=== PATIENT | male | born 1980 | race Caucasian/White ===

== ENCOUNTER 2017-09-06 03:11 | Emergency (ER) | payer OTHER ==
[~2017-09-06] VITALS: Ht 188 cm; Wt 143.0 kg
[2017-09-06 03:22] VITALS: BP 192/75; PULSE 88; RESP 18; TEMP 99.6; O2SAT 99
[2017-09-06] MEDS ORDERED: MONT10TA2 PO (04:24)
[2017-09-06] MEDS ORDERED: LORA-567 PO (04:24)
[2017-09-06] MEDS ORDERED: MINO100 PO (04:24)
[2017-09-06] MEDS ORDERED: RANI1TAB5 PO (04:24)
[2017-09-06] MEDS ORDERED: KETO2CRE TOPICAL (04:24)
[2017-09-06] MEDS ORDERED: LOSA50TA PO (04:24)
[2017-09-06] MEDS ORDERED: PANT40TA3 PO (04:24)
[2017-09-06] MEDS ORDERED: NYST15T TOPICAL (04:24)
--- NOTE | 2017-09-06 05:50 | PD ---
HPI Chief Complaint: Skin Problem Time Seen by Provider: 05:41 Travel History International Travel<30 days: No Contact w/Intl Traveler<30days: No Traveled to known affect area: No History of Present Illness HPI The patient is a 36-year-old male with a history of psoriasis. In the last 24 hours he has developed a fever. The patient has noticed a sudden onset of redness, particularly on the left upper arm consistent with cellulitis. He is being treated for a fungal infection with ketoconizole. The fevers been a low- grade but he does have associated pain with the skin rash. He is not on steroids. PFSH Past Medical History Diminished Hearing: No GERD: Yes Hypertension: Yes Respiratory: Yes (SEASONAL ALLERGIES) Influenza Vaccination: No Social History Alcohol Use: No Tobacco Use: No Substance Use: No Allergies-Medications (Allergen,Severity, Reaction): Coded Allergies: No Known Allergies (Unverified , 09/06/17) Reported Meds & Prescriptions Reported Meds & Active Scripts Active Cleocin (Clindamycin HCl) 300 Mg Cap 300 Mg PO Q6H 10 Days Reported Ranitidine 75 (Ranitidine HCl) 75 Mg Tab 75 Mg PO DAILY Take 30 to 60 minutes before eating food or drinking beverages that cause heartburn. Singulair (Montelukast Sodium) 10 Mg Tab 10 Mg PO HS Loratadine Odt (Loratadine) 10 Mg Tab 10 Mg PO DAILY Pantoprazole (Pantoprazole Sodium) 40 Mg Tab 40 Mg PO DAILY Losartan (Losartan Potassium) 50 Mg Tab 50 Mg PO BID Minocycline (Minocycline HCl) 100 Mg Cap 100 Mg PO BID Nystatin Topical (Nystatin) 100,000 unit/gm Cream 1 Applic TOPICAL BID Ketoconazole Topical 2% Cream 1 Applic TOPICAL BID Review of Systems Except as stated in HPI: all other systems reviewed are Neg Physical Exam Narrative GENERAL: The patient is alert, oriented 3 and slight apparent distress with his painful skin rash. His vital signs show temperature 99.6 and blood pressure 192/75 but otherwise normal. SKIN: Focused skin assessment warm/dry. There is an erythematous, squamous rash particularly prominent on the axillae, groin and waist. The left upper arm shows an area of erythema she apparently has progressed rapidly and is consistent with cellulitis. This area is about 8 cm X 10 cm. HEAD: Atraumatic. Normocephalic. EYES: Pupils equal and round. No scleral icterus. No injection or drainage. ENT: No nasal bleeding or discharge. Mucous membranes pink and moist. NECK: Trachea midline. No JVD. CARDIOVASCULAR: Regular rate and rhythm. No murmur appreciated. RESPIRATORY: No accessory muscle use. Clear to auscultation. Breath sounds equal bilaterally. GASTROINTESTINAL: Abdomen soft, non-tender, nondistended. Hepatic and splenic margins not palpable. MUSCULOSKELETAL: No obvious deformities. No clubbing. No cyanosis. No edema. NEUROLOGICAL: Awake and alert. No obvious cranial nerve deficits. Motor grossly within normal limits. Normal speech. PSYCHIATRIC: Appropriate mood and affect; insight and judgment normal. Data Data Last Documented VS Vital Signs Date Time Temp Pulse Resp B/P (MAP) Pulse Ox O2 Delivery O2 Flow Rate FiO2 09/06/17 04:15 20 09/06/17 03:22 99.6 88 192/75 (114) 99 Orders Orders Complete Blood Count With Diff (09/06/17 05:41) Basic Metabolic Panel (Bmp) (09/06/17 05:41) Wound Culture And Gram Stain (09/06/17 05:41) Acetaminophen (Tylenol) (09/06/17 06:15) Clindamycin 900 Mg/Dex Premix (Cleocin 9 (09/06/17 06:30) Labs Laboratory Tests Test 09/06/17 05:50 White Blood Count 13.7 TH/MM3 Red Blood Count 5.08 MIL/MM3 Hemoglobin 12.9 GM/DL Hematocrit 39.8 % Mean Corpuscular Volume 78.3 FL Mean Corpuscular Hemoglobin 25.3 PG Mean Corpuscular Hemoglobin Concent 32.3 % Red Cell Distribution Width 14.1 % Platelet Count 269 TH/MM3 Mean Platelet Volume 8.0 FL Neutrophils (%) (Auto) 87.0 % Lymphocytes (%) (Auto) 8.1 % Monocytes (%) (Auto) 3.6 % Eosinophils (%) (Auto) 0.9 % Basophils (%) (Auto) 0.4 % Neutrophils # (Auto) 11.9 TH/MM3 Lymphocytes # (Auto) 1.1 TH/MM3 Monocytes # (Auto) 0.5 TH/MM3 Eosinophils # (Auto) 0.1 TH/MM3 Basophils # (Auto) 0.1 TH/MM3 CBC Comment DIFF FINAL Differential Comment Blood Urea Nitrogen 17 MG/DL Creatinine 1.30 MG/DL Random Glucose 105 MG/DL Calcium Level 8.9 MG/DL Sodium Level 140 MEQ/L Potassium Level 4.1 MEQ/L Chloride Level 105 MEQ/L Carbon Dioxide Level 26.5 MEQ/L Anion Gap 9 MEQ/L Estimat Glomerular Filtration Rate 62 ML/MIN MDM Medical Decision Making Medical Screen Exam Complete: Yes Emergency Medical Condition: Yes Medical Record Reviewed: Yes Interpretation(s) The CBC shows a white count of 13,700. The patient does not look septic. Differential Diagnosis Cellulitis, psoriasis, fungal infection Narrative Course The patient does have psoriasis which apparently has been infected by fungi but , in the last 24 hours by bacteria. The rash on the left upper arm has grown particularly fast. This rash is not a squamous rash and does not appear as psoriasis and is far too rapid for fungi. Impression: Cellulitis, psoriasis Plan: The patient be given clindamycin and Septra DS. 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 You will get a work release to not work until cleared by your plant operator/shift supervisor. If worse, you may need to return to emergency department. Med/Other Pt SpecificInfo: Prescription(s) given Scripts Clindamycin (Cleocin) 300 Mg Cap 300 MG PO Q6H for Infection for 10 Days, #40 CAP 0 Refills Prov: Andry Wilson MD 09/06/17 Disposition: 01 DISCHARGE HOME Condition: Stable Andry Wilson MD Sep 06, 2017 05:50
[2017-09-06 06:05] LABS: AUTOMATED NEUTROPHIL # 11.9 TH/MM3 (1.8-7.7); BASOPHIL # 0.1 TH/MM3 (0-0.2); BASOPHIL % 0.4 % (0.0-2.0); EOSINOPHIL # 0.1 TH/MM3 (0-0.4); EOSINOPHIL % 0.9 % (0.0-4.0); HEMATOCRIT 39.8 % (39.0-51.0); HEMOGLOBIN 12.9 GM/DL (13.0-17.0); LYMPH % 8.1 % (9.0-44.0); LYMPHOCYTE # 1.1 TH/MM3 (1.0-4.8); MEAN CELL VOLUME 78.3 FL (80.0-100.0); MEAN CORPUSCULAR HEMOGLOBIN 25.3 PG (27.0-34.0); MEAN CORPUSCULAR HGB CONC 32.3 % (32.0-36.0); MONO % 3.6 % (0.0-8.0); MONOCYTE # 0.5 TH/MM3 (0-0.9); PLATELET COUNT 269 TH/MM3 (150-450); RED BLOOD COUNT 5.08 MIL/MM3 (4.50-5.90); RED CELL DISTRIBUTION WIDTH 14.1 % (11.6-17.2); WHITE BLOOD COUNT 13.7 TH/MM3 (4.0-11.0)
[2017-09-06 06:13] LABS: CALCIUM 8.9 MG/DL (8.5-10.1)
[2017-09-06 06:14] LABS: BICARBONATE 26.5 MEQ/L (21.0-32.0)
[2017-09-06] MEDS ORDERED: ACETAMINOPHEN 325 MG TAB PO ONE (06:15)
[2017-09-06 06:17] LABS: CREATININE 1.3 MG/DL (0.60-1.30)
[2017-09-06] MEDS ORDERED: CLEO300C2 PO (06:18)
[2017-09-06] MEDS ORDERED: CLINDAMYCIN 900 MG/DEX PREMIX 50 ML IV ONE (06:30)
[2017-09-06 06:45] VITALS: BP 152/86; PULSE 98; RESP 20; TEMP 101.7; O2SAT 98
[2017-09-07] MEDS ORDERED: traMADol HCL 50 MG TAB PO PRN (02:45)
== END 2017-09-06 07:57 | disposition home or self-care (01) ==
LOC: PHED 03:11
DX: L03.114 Cellulitis of left upper limb (principal); B95.1 Streptococcus, group B, as the cause of diseases classified elsewhere; I10 Essential (primary) hypertension
CPT/HCPCS: 80048; 85025; 86403; 87070; 96365

== ENCOUNTER 2017-09-06 15:41 | Inpatient (IN) | payer OTHER ==
[~2017-09-06] VITALS: Ht 188 cm; Wt 141.8 kg
[~2017-09-06 15:41] MED LIST: CLEO300C2 PO; KETO2CRE TOPICAL; LORA-567 PO; LOSA50TA PO; MINO100 PO; MONT10TA2 PO; NYST15T TOPICAL; PANT40TA3 PO; RANI1TAB5 PO
[2017-09-06 15:55] VITALS: BP 155/80; PULSE 120; RESP 16; TEMP 99.4; O2SAT 99
[2017-09-06] MEDS ORDERED: ACETAMINOPHEN 325 MG TAB PO ONE (16:45)
[2017-09-06] MEDS ORDERED: SODIUM CHLOR 0.9% 1000 ML INJ 1,000 ML IV ONE (17:00)
[2017-09-06 17:06] LABS: AUTOMATED NEUTROPHIL # 15.2 TH/MM3 (1.8-7.7); BASOPHIL % 0.2 % (0.0-2.0); EOSINOPHIL # 0.1 TH/MM3 (0-0.4); EOSINOPHIL % 0.5 % (0.0-4.0); HEMOGLOBIN 12.8 GM/DL (13.0-17.0); LYMPH % 5.9 % (9.0-44.0); MEAN CELL VOLUME 77.6 FL (80.0-100.0); MEAN CORPUSCULAR HEMOGLOBIN 25.4 PG (27.0-34.0); MEAN CORPUSCULAR HGB CONC 32.7 % (32.0-36.0); MEAN PLATELET VOLUME 8.1 FL (7.0-11.0); MONOCYTE # 0.7 TH/MM3 (0-0.9); NEUT % 89.4 % (16.0-70.0); PLATELET COUNT 306 TH/MM3 (150-450); RED BLOOD COUNT 5.03 MIL/MM3 (4.50-5.90); RED CELL DISTRIBUTION WIDTH 14.1 % (11.6-17.2)
[2017-09-06 17:14] LABS: CHLORIDE 103 MEQ/L (98-107); SODIUM (NA) 137 MEQ/L (136-145)
[2017-09-06 17:18] LABS: ALBUMIN 3.1 GM/DL (3.4-5.0); BICARBONATE 26.5 MEQ/L (21.0-32.0); CALCIUM 8.4 MG/DL (8.5-10.1); INTERNATIONAL NORMALIZED RATIO 1.1 RATIO
[2017-09-06 17:19] LABS: BLOOD UREA NITROGEN 14 MG/DL (7-18); GLUCOSE,RANDOM 103 MG/DL (74-106)
[2017-09-06 17:21] LABS: ALT (GPT) 18 U/L (12-78)
[2017-09-06 17:21] LABS: BILIRUBIN, URINE NEG (NEG); BLOOD, URINE TRACE (NEG); GLUCOSE,URINE NEG (NEG); KETONE, URINE NEG (NEG); NITRITE,URINE NEG (NEG); PH, URINE 5.5 (5.0-8.5); URINE LEUKOCYTE ESTERASE TRACE (NEG)
[2017-09-06 17:22] LABS: AST (GOT) 13 U/L (15-37); GLOMERULAR FILTRATION RATE 62 ML/MIN (>89)
[2017-09-06 17:23] LABS: TOTAL BILIRUBIN ADULT 0.5 MG/DL (0.2-1.0); TOTAL PROTEIN 7.8 GM/DL (6.4-8.2)
--- NOTE | 2017-09-06 17:23 | RADRPT ---
EXAM DATE/TIME: 09/06/2017 16:53 [facility] COMPARISON: No previous studies available for comparison. INDICATIONS : Fever and cough. MEDICAL HISTORY : None. SURGICAL HISTORY : None. ENCOUNTER: Initial ACUITY: 1 day PAIN SCORE: 2/10 LOCATION: Bilateral upper chest FINDINGS: Minimal linear opacity in the left lung base. Cardiomediastinal contours are within normal limits. Eh ny thorax is intact. CONCLUSION: 1. Minimal linear opacity at the left lung base, presumably atelectasis. Nathan Cedeño MD on September 06, 2017 at 17:21 Board Certified Radiologist. This report was verified electronically.
[2017-09-06 17:24] LABS: ALKALINE PHOSPHATASE 96 U/L (45-117)
[2017-09-06 17:37] LABS: RBC, URINE 0-3 /hpf (0-3); SQUAMOUS EPITHELIAL CELL URINE 0-5 /hpf (0-5); URINE COLOR YELLOW (YELLW/STRAW); WBC, URINE 0-2 /hpf (0-5)
[2017-09-06] MEDS ORDERED: VANCOMYCIN INJ 1,750 MG in SODIUM CHLORID 0.9% 500 ML INJ 500 ML IV ONE (17:45)
--- NOTE | 2017-09-06 18:01 | PD ---
HPI Chief Complaint: Skin Problem Time Seen by Provider: 16:33 Travel History International Travel<30 days: No Contact w/Intl Traveler<30days: No Traveled to known affect area: No History of Present Illness HPI 36-year-old male with a history of psoriasis presents to the emergency Department second time today with concerns of an uncontrolled rash in his chest , axilla, waistline, and groin. Patient states that he was here this morning and was prescribed antibiotics but has not started this medication yet. Patient states that his fever has spiked to 102 but has not taken Tylenol or Motrin because he wanted to demonstrate the extent of his fever. He denies nausea, vomiting or diarrhea. Denies shortness of breath or chest pain. Denies abdominal pain. States he has a history of psoriasis and hypertension but otherwise is healthy. He is not currently using steroids and has not for months. They're concerned because the area of redness has spread since this morning's discharge. PFSH Past Medical History Cardiovascular Problems: Yes (htn on meds) Diminished Hearing: No GERD: Yes Hypertension: Yes Respiratory: Yes (SEASONAL ALLERGIES) Past Surgical History Surgical History: No Previous Surgery Social History Alcohol Use: No Tobacco Use: No Substance Use: No Allergies-Medications (Allergen,Severity, Reaction): Coded Allergies: codeine (Verified Allergy, Intermediate, Rash, 09/07/17) Breaks out in rash Reported Meds & Prescriptions Reported Meds & Active Scripts Active Cleocin (Clindamycin HCl) 300 Mg Cap 300 Mg PO Q6H 10 Days Reported Ranitidine 75 (Ranitidine HCl) 75 Mg Tab 75 Mg PO DAILY Take 30 to 60 minutes before eating food or drinking beverages that cause heartburn. Singulair (Montelukast Sodium) 10 Mg Tab 10 Mg PO HS Loratadine Odt (Loratadine) 10 Mg Tab 10 Mg PO DAILY Pantoprazole (Pantoprazole Sodium) 40 Mg Tab 40 Mg PO DAILY Losartan (Losartan Potassium) 50 Mg Tab 50 Mg PO BID Minocycline (Minocycline HCl) 100 Mg Cap 100 Mg PO BID Nystatin Topical (Nystatin) 100,000 unit/gm Cream 1 Applic TOPICAL BID Ketoconazole Topical 2% Cream 1 Applic TOPICAL BID Review of Systems Except as stated in HPI: all other systems reviewed are Neg Physical Exam Narrative GENERAL: Well-developed well-nourished distress SKIN: Focused skin assessment warm/dry. Bilateral axilla, pannus, groin, chest- erythematous plaques with satellite lesions, mild scaling, Nickolskys sign negative HEAD: Atraumatic. Normocephalic. EYES: Pupils equal and round. No scleral icterus. No injection or drainage. ENT: No nasal bleeding or discharge. Mucous membranes pink and moist. NECK: Trachea midline. No JVD. CARDIOVASCULAR: Regular rate and rhythm. No murmur appreciated. RESPIRATORY: No accessory muscle use. Clear to auscultation. Breath sounds equal bilaterally. GASTROINTESTINAL: Abdomen soft, non-tender, nondistended. Hepatic and splenic margins not palpable. MUSCULOSKELETAL: No obvious deformities. No clubbing. No cyanosis. No edema. NEUROLOGICAL: Awake and alert. No obvious cranial nerve deficits. Motor grossly within normal limits. Normal speech. PSYCHIATRIC: Appropriate mood and affect; insight and judgment normal. Data Data Last Documented VS Vital Signs Date Time Temp Pulse Resp B/P (MAP) Pulse Ox O2 Delivery O2 Flow Rate FiO2 09/06/17 15:55 99.4 120 16 155/80 (105) 99 Orders Orders Complete Blood Count With Diff (09/06/17 16:41) Comprehensive Metabolic Panel (09/06/17 16:41) Prothrombin Time / Inr (Pt) (09/06/17 16:41) Act Partial Throm Time (Ptt) (09/06/17 16:41) Lactic Acid Sepsis Protocol (09/06/17 16:41) Urinalysis - C+S If Indicated (09/06/17 16:41) Blood Culture (09/06/17 16:41) Chest, Single Ap (09/06/17 16:41) Blood Glucose (09/06/17 16:41) Ecg Monitoring (09/06/17 16:41) Iv Access Insert/Monitor (09/06/17 16:41) Oximetry (09/06/17 16:41) Oxygen Administration (09/06/17 16:41) Acetaminophen (Tylenol) (09/06/17 16:45) Sodium Chlor 0.9% 1000 Ml Inj (Ns 1000 M (09/06/17 17:00) Vancomycin Inj (Vancomycin Inj) (09/06/17 17:45) C-Reactive Protein (Crp) (09/06/17 18:24) Fluconazole 200 Mg Premix Bag (Diflucan (09/06/17 18:30) Admit Order (Ed Use Only) (09/06/17 18:25) Labs Laboratory Tests Test 09/06/17 16:50 09/06/17 17:00 White Blood Count 17.0 TH/MM3 Red Blood Count 5.03 MIL/MM3 Hemoglobin 12.8 GM/DL Hematocrit 39.0 % Mean Corpuscular Volume 77.6 FL Mean Corpuscular Hemoglobin 25.4 PG Mean Corpuscular Hemoglobin Concent 32.7 % Red Cell Distribution Width 14.1 % Platelet Count 306 TH/MM3 Mean Platelet Volume 8.1 FL Neutrophils (%) (Auto) 89.4 % Lymphocytes (%) (Auto) 5.9 % Monocytes (%) (Auto) 4.0 % Eosinophils (%) (Auto) 0.5 % Basophils (%) (Auto) 0.2 % Neutrophils # (Auto) 15.2 TH/MM3 Lymphocytes # (Auto) 1.0 TH/MM3 Monocytes # (Auto) 0.7 TH/MM3 Eosinophils # (Auto) 0.1 TH/MM3 Basophils # (Auto) 0.0 TH/MM3 CBC Comment DIFF FINAL Differential Comment Prothrombin Time 11.0 SEC Prothromb Time International Ratio 1.1 RATIO Activated Partial Thromboplast Time 32.1 SEC Blood Urea Nitrogen 14 MG/DL Creatinine 1.30 MG/DL Random Glucose 103 MG/DL Total Protein 7.8 GM/DL Albumin 3.1 GM/DL Calcium Level 8.4 MG/DL Alkaline Phosphatase 96 U/L Aspartate Amino Transf (AST/SGOT) 13 U/L Alanine Aminotransferase (ALT/SGPT) 18 U/L Total Bilirubin 0.5 MG/DL Sodium Level 137 MEQ/L Potassium Level 3.8 MEQ/L Chloride Level 103 MEQ/L Carbon Dioxide Level 26.5 MEQ/L Anion Gap 8 MEQ/L Estimat Glomerular Filtration Rate 62 ML/MIN Lactic Acid Level 1.1 mmol/L C-Reactive Protein 12.30 MG/DL Urine Color YELLOW Urine Turbidity CLEAR Urine pH 5.5 Urine Specific [place] 1.021 Urine Protein NEG mg/dL Urine Glucose (UA) NEG mg/dL Urine Ketones NEG mg/dL Urine Occult Blood TRACE Urine Nitrite NEG Urine Bilirubin NEG Urine Leukocyte Esterase TRACE Urine RBC 0-3 /hpf Urine WBC 0-2 /hpf Urine Squamous Epithelial Cells 0-5 /hpf Microscopic Urinalysis Comment CATH-CULT NOT IND MDM Medical Decision Making Medical Screen Exam Complete: Yes Emergency Medical Condition: Yes Differential Diagnosis Cellulitis, bacteremia, sepsis, urosepsis list, psoriasis Narrative Course 36-year-old male with a history of psoriasis presents to the emergency Department second time today with concerns of an uncontrolled rash in his chest , axilla, waistline, and groin. Patient states that he was here this morning and was prescribed antibiotics but has not started this medication yet. Patient states that his fever has spiked to 102 but has not taken Tylenol or Motrin because he wanted to demonstrate the extent of his fever. He denies nausea, vomiting or diarrhea. Denies shortness of breath or chest pain. Denies abdominal pain. States he has a history of psoriasis and hypertension but otherwise is healthy. He is not currently using steroids and has not for months. They're concerned because the area of redness has spread since this morning's discharge. CBC & BMP Diagram 09/06/17 16:50 Total Protein 7.8, Albumin 3.1 L, Calcium Level 8.4 L, Alkaline Phosphatase 96, Aspartate Amino Transf (AST/SGOT) 13 L, Alanine Aminotransferase (ALT/SGPT) 18, Total Bilirubin 0.5 White blood cell count has increased to 17 from 13 this morning. Vital Signs Date Time Temp Pulse Resp B/P (MAP) Pulse Ox O2 Delivery O2 Flow Rate FiO2 09/06/17 15:55 99.4 120 16 155/80 (105) 99 WBCs increased since this morning. Concern for developing bacteremia versus sepsis. Patient received vancomycin and 1 L normal saline in the emergency department. Patient would be admitted for IV antibiotics. There is a concern for noncompliance with outpatient therapy. Patient will be admitted to Dr. Fink for leukocytosis, cellulitis, noncompliance. Diagnosis Primary Impression: Leukocytosis Qualified Codes: D72.829 - Elevated white blood cell count, unspecified Additional Impressions: Cellulitis Qualified Codes: L03.90 - Cellulitis, unspecified Noncompliance with medication regimen Admitting Information Admitting Physician Requests: Observation Condition: Stable Catie Ro Sep 06, 2017 18:01
[2017-09-06] MEDS ORDERED: FLUCONAZOLE 200 MG PREMIX BAG 100 ML IV ONE (18:30)
[2017-09-06 19:23] VITALS: BP 146/73; PULSE 87; RESP 18; O2SAT 97
--- NOTE | 2017-09-06 19:27 | HHI.HP ---
HPI Service [facility] Hospitalists Primary Care Physician Unknown Admission Diagnosis cellulitis Chief Complaint: Rash, fever Travel History International Travel<30 Days: No Contact w/Intl Traveler <30 Da: No Traveled to Known Affected Are: No Sepsis Criteria SIRS Criteria (2 or more): Heart rate over 90, WBC > 08073, < 4000 or > 10% bands Sepsis Criteria (SIRS+source): Infect source susp/known History of Present Illness 36-year-old male with a history of psoriasis presents to the emergency Department second time today with concerns of an uncontrolled rash in his chest , axilla, waistline, and groin. Patient states that he was here this morning and was prescribed clindamycin but has not started this medication yet. Patient states that his fever spiked to 102 and has not taken Tylenol or Motrin for this. He denies nausea, vomiting or diarrhea. Denies shortness of breath or chest pain. Denies abdominal pain. States he has a history of psoriasis and hypertension but otherwise is healthy. Rash is not pruritic. He denies any boils or blisters or fluid collection in the rash. He states that much of the rash has been present for over a year and that he was diagnosed with psoriasis approximately one year ago. However rash in his axilla in his groin area become more erythematous and painful over the last 2 days. Said he had some malaise yesterday and noted low-grade fever this morning with a temperature max of 102 and later today. He is not currently using steroids and has not been for months. They're concerned because the area of redness has spread since this morning's discharge. The only significant medical change of late is that his doxycycline was switched to minocycline approximately 2 weeks ago by a new loan specialist. He said biopsy of the rash in the past which confirmed psoriasis. Reportedly had another biopsy approximately 2 weeks ago by his loan specialist in [place] but does not know the results of that yet. Review of Systems Constitutional: COMPLAINS OF: Fatigue, Fever, Chills, DENIES: Diaphoretic episodes, Weight gain, Weight loss, Dizziness, Change in appetite, Night Sweats Endocrine: DENIES: Heat/cold intolerance, Polydipsia, Polyuria, Polyphagia Eyes: DENIES: Blurred vision, Diplopia, Eye inflammation, Eye pain, Vision loss , Photosensitivity, Double Vision Ears, nose, mouth, throat: DENIES: Tinnitus, Hearing loss, Vertigo, Nasal discharge, Oral lesions, Throat pain, Hoarseness, Ear Pain, Running Nose, Epistaxis, Sinus Pain, Toothache, Odynophagia Respiratory: DENIES: Apneas, Cough, Snoring, Wheezing, Hemoptysis, Sputum production, Shortness of breath Cardiovascular: DENIES: Chest pain, Palpitations, Syncope, Dyspnea on Exertion , PND, Lower Extremity Edema, Orthopnea, Claudication Gastrointestinal: DENIES: Abdominal pain, Black stools, Bloody stools, BRB per rectum, Constipation, Diarrhea, GERD, Nausea, Reflux, Vomiting, Difficulty Swallowing, Anorexia, See HPI Musculoskeletal: DENIES: Joint pain, Muscle aches, Stiffness, Joint Swelling, Back pain, Neck pain Integumentary: COMPLAINS OF: Abnormal pigmentation, Nail changes, Rash, DENIES : Pruritus Hematologic/lymphatic: DENIES: Bruising, Lymphadenopathy Immunologic/allergic: DENIES: Eczema, Urticaria Neurologic: DENIES: Abnormal gait, Headache, Localized weakness, Paresthesias, Seizures, Speech Problems, Tremor, Poor Balance Psychiatric: DENIES: Anxiety, Confusion, Mood changes, Depression, Hallucinations, Agitation, Suicidal Ideation, Homicidal Ideation, Delusions, History of Bipolar, History of Schizophrenia Past Family Social History Past Medical History Hypertension Obesity Psoriasis GERD Environmental allergies Past Surgical History None per patient Reported Medications Cleocin (Clindamycin HCl) 300 Mg Cap 300 Mg PO Q6H 10 Days, just written today and has not started medication Singulair (Montelukast Sodium) 10 Mg Tab 10 Mg PO HS Loratadine Odt (Loratadine) 10 Mg Tab 10 Mg PO DAILY Pantoprazole (Pantoprazole Sodium) 40 Mg Tab 40 Mg PO DAILY Losartan (Losartan Potassium) 50 Mg Tab 50 Mg PO BID Minocycline (Minocycline HCl) 100 Mg Cap 100 Mg PO BID, started approximately 2 weeks ago Nystatin Topical (Nystatin) 100,000 unit/gm Cream 1 Applic TOPICAL BID Ketoconazole Topical 2% Cream 1 Applic TOPICAL BID Clobetasol lotion to scalp twice daily as needed Allergies: Coded Allergies: No Known Allergies (Unverified , 09/06/17) Family History Denies any significant skin conditions or autoimmune disorders Social History Denies tobacco, alcohol or illicit drug use Grew up in [facility] [employer] Physical Exam Vital Signs Vital Signs Date Time Temp Pulse Resp B/P (MAP) Pulse Ox O2 Delivery O2 Flow Rate FiO2 09/06/17 15:55 99.4 120 16 155/80 (105) 99 Physical Exam GENERAL: This is a well-nourished, obese, well-developed patient, in no apparent distress. Cooperative with exam. SKIN: Confluent areas of erythema with surrounding satellite lesions and papules in bilateral groins and axilla. No bullous lesions noted. Erythematous confluence rash on upper chest. A few punctate areas of erythematous plaques on forearms and about scalp with silvery scales. Onycholysis and nail pitting noted on all nail beds of both hands (chronic and stable per patient) HEAD: Atraumatic. Normocephalic. No temporal or scalp tenderness. EYES: Pupils equal round and reactive. Extraocular motions intact. No scleral icterus. No injection or drainage. ENT: Nose without bleeding, purulent drainage or septal hematoma. Airway patent. NECK: Trachea midline. No JVD or lymphadenopathy. Supple, nontender, no meningeal signs. CARDIOVASCULAR: Regular rate and rhythm without murmurs, gallops, or rubs. RESPIRATORY: Clear to auscultation. Breath sounds equal bilaterally. No wheezes , rales, or rhonchi. GASTROINTESTINAL: Abdomen soft, non-tender, nondistended. No hepato-splenomegaly , or palpable masses. No guarding. Bowel sounds normal. MUSCULOSKELETAL: Extremities without clubbing, cyanosis, or edema. No joint tenderness, effusion, or edema noted. No calf tenderness. NEUROLOGICAL: Awake and alert. Cranial nerves II through XII intact. Motor and sensory grossly within normal limits. Five out of 5 muscle strength in all muscle groups. Normal speech. Laboratory Laboratory Tests Test 09/06/17 16:50 09/06/17 17:00 White Blood Count 17.0 Red Blood Count 5.03 Hemoglobin 12.8 Hematocrit 39.0 Mean Corpuscular Volume 77.6 Mean Corpuscular Hemoglobin 25.4 Mean Corpuscular Hemoglobin Concent 32.7 Red Cell Distribution Width 14.1 Platelet Count 306 Mean Platelet Volume 8.1 Neutrophils (%) (Auto) 89.4 Lymphocytes (%) (Auto) 5.9 Monocytes (%) (Auto) 4.0 Eosinophils (%) (Auto) 0.5 Basophils (%) (Auto) 0.2 Neutrophils # (Auto) 15.2 Lymphocytes # (Auto) 1.0 Monocytes # (Auto) 0.7 Eosinophils # (Auto) 0.1 Basophils # (Auto) 0.0 CBC Comment DIFF FINAL Differential Comment Prothrombin Time 11.0 Prothromb Time International Ratio 1.1 Activated Partial Thromboplast Time 32.1 Blood Urea Nitrogen 14 Creatinine 1.30 Random Glucose 103 Total Protein 7.8 Albumin 3.1 Calcium Level 8.4 Alkaline Phosphatase 96 Aspartate Amino Transf (AST/SGOT) 13 Alanine Aminotransferase (ALT/SGPT) 18 Total Bilirubin 0.5 Sodium Level 137 Potassium Level 3.8 Chloride Level 103 Carbon Dioxide Level 26.5 Anion Gap 8 Estimat Glomerular Filtration Rate 62 Lactic Acid Level 1.1 Urine Color YELLOW Urine Turbidity CLEAR Urine pH 5.5 Urine Specific [place] 1.021 Urine Protein NEG Urine Glucose (UA) NEG Urine Ketones NEG Urine Occult Blood TRACE Urine Nitrite NEG Urine Bilirubin NEG Urine Leukocyte Esterase TRACE Urine RBC 0-3 Urine WBC 0-2 Urine Squamous Epithelial Cells 0-5 Microscopic Urinalysis Comment CATH-CULT NOT IND Date/Time Source Procedure Growth Status 09/06/17 16:55 Blood Peripheral Aerobic Blood Culture Pending Received 09/06/17 16:55 Blood Peripheral Anaerobic Blood Culture Pending Received Result Diagram: 09/06/17 1650 09/06/17 1650 Imaging Last 72 hours Impressions Chest X-Ray 09/06/17 1641 Signed Impressions: Service Date/Time: Wednesday, September 06, 2017 16:53 - CONCLUSION: 1. Minimal linear opacity at the left lung base, presumably atelectasis. MD Marcus Morley VTE Risk Assessment Caprini VTE Risk Assessment: No/Low Risk (score <= 1) Caprini Risk Assessment Model Point Value = 1 Point Value = 2 Point Value = 3 Point Value = 5 Age 41-60 Minor surgery BMI > 25 kg/m2 Swollen legs Varicose veins or History of unexplained or recurrent spontaneous Oral contraceptives or hormone replacement Sepsis (< 1 month) Serious lung disease, including pneumonia (< 1 month) Abnormal pulmonary function Acute myocardial infarction Congestive heart failure (< 1 month) History of inflammatory bowel disease Medical patient at bed rest Age 61-74 Arthroscopic surgery Major open surgery (> 45 min) Laparoscopic surgery (> 45 min) Malignancy Confined to bed (> 72 hours) Immobilizing plaster cast Central venous access Age >= 75 History of VTE Family history of VTE Factor V Leiden Prothrombin [id number] Lupus anticoagulant Anticardiolipin antibodies Elevated serum homocysteine Heparin-induced thrombocytopenia Other congenital or acquired thrombophilia Stroke (< 1 month) Elective arthroplasty Hip, pelvis, or leg fracture Acute spinal cord injury (< 1 month) Prophylaxis Regimen Total Risk Factor Score Risk Level Prophylaxis Regimen 0-1 Low Early ambulation 2 Moderate Order ONE of the following: *Sequential Compression Device (SCD) *Heparin 5000 units SQ BID 3-4 Higher Order ONE of the following medications: *Heparin 5000 units SQ TID *Enoxaparin/Lovenox 40 mg SQ daily (WT < 150 kg, CrCl > 30 mL/min) *Enoxaparin/Lovenox 30 mg SQ daily (WT < 150 kg, CrCl > 10-29 mL/min) *Enoxaparin/Lovenox 30 mg SQ BID (WT < 150 kg, CrCl > 30 mL/min) AND/OR *Sequential Compression Device (SCD) 5 or more Highest Order ONE of the following medications: *Heparin 5000 units SQ TID (Preferred with Epidurals) *Enoxaparin/Lovenox 40 mg SQ daily (WT < 150 kg, CrCl > 30 mL/min) *Enoxaparin/Lovenox 30 mg SQ daily (WT < 150 kg, CrCl > 10-29 mL/min) *Enoxaparin/Lovenox 30 mg SQ BID (WT < 150 kg, CrCl > 30 mL/min) AND *Sequential Compression Device (SCD) Assessment and Plan Problem List: (1) Cellulitis ICD Codes: L03.90 - Cellulitis, unspecified Status: Acute Plan: Possibly source of his fever and leukocytosis. Vancomycin has been administered He definitely has some underlying psoriatic lesions as well. We'll give one dose of steroid. Given his fever, leukocytosis, tachycardia and likely skin infection, patient meets criteria for SIRS/borderline sepsis. (2) Leukocytosis ICD Codes: D72.829 - Elevated white blood cell count, unspecified Status: Acute Plan: As above. (3) Tinea corporis ICD Codes: B35.4 - Tinea corporis Status: Acute Plan: Diflucan. Ketoconazole. Barrier creams. (4) Hypertension ICD Codes: I10 - Essential (primary) hypertension Status: Chronic Plan: Continue medication. (5) GERD (gastroesophageal reflux disease) ICD Codes: K21.9 - Gastro-esophageal reflux disease without esophagitis Status: Chronic Plan: Continue medication. Code Status full Discussed Condition With Patient, his and ER provider Physician Certification 2 Midnight Certification Type: Admission for Inpatient Services Order for Inpatient Services The services are ordered in accordance with Medicare regulations or non- Medicare payer requirements, as applicable. In the case of services not specified as inpatient-only, they are appropriately provided as inpatient services in accordance with the 2-midnight benchmark. Estimated LOS (days): 2 days is the estimated time the patient will need to remain in the hospital, assuming treatment plan goals are met and no additional complications. Post-Hospital Plan: Home Problem Qualifiers (1) Cellulitis: Qualified Codes: L03.90 - Cellulitis, unspecified (2) Leukocytosis: Qualified Codes: D72.829 - Elevated white blood cell count, unspecified (3) Hypertension: Qualified Codes: I10 - Essential (primary) hypertension Jose Fink MD PhD Sep 06, 2017 19:27
[2017-09-06] MEDS ORDERED: Vancomycin Consult Pharmacy 1 EA OTHER SCH (19:30)
[2017-09-06] MEDS ORDERED: methylPREDNISolone SOD SUCC 40 MG/1 ML VIAL IV PUSH ONE (20:00)
[2017-09-06 20:15] VITALS: BP 154/80; PULSE 85; RESP 20; TEMP 99.4; O2SAT 98
[2017-09-06] MEDS ORDERED: PETROLATUM 49%/ZINC OXIDE 15% 4 OUNCE TUBE TOPICAL SCH (21:00)
[2017-09-06] MEDS: LOSARTAN 50 MG TAB PO SCH (23:57)
[2017-09-06] MEDS: NS + KCL 20 MEQ INJ 1,000 ML IV SCH (23:57)
[2017-09-06] MEDS: MONTELUKAST SODIUM 10 MG TAB PO SCH (23:57)
[2017-09-07] VITALS: BP 156/86; PULSE 105; RESP 20; TEMP 100.5; O2SAT 100
[2017-09-07] MEDS ORDERED: traMADol HCL 50 MG TAB PO PRN (03:30)
[2017-09-07] MEDS: ACETAMINOPHEN 500 MG CPLT PO PRN (03:42)
[2017-09-07 04:00] VITALS: BP 139/80; PULSE 90; RESP 20; TEMP 98.3; O2SAT 96
[2017-09-07] MEDS: NS + KCL 20 MEQ INJ 1,000 ML IV SCH (05:30)
[2017-09-07] MEDS ORDERED: VANCOMYCIN INJ 1,800 MG in SODIUM CHLORID 0.9% 500 ML INJ 500 ML IV SCH ×2 (06:00→09:00)
[2017-09-07 06:11] LABS: AUTOMATED NEUTROPHIL # 18.8 TH/MM3 (1.8-7.7); BASOPHIL % 0.1 % (0.0-2.0); HEMATOCRIT 37.5 % (39.0-51.0); HEMOGLOBIN 12.3 GM/DL (13.0-17.0); LYMPH % 3.2 % (9.0-44.0); LYMPHOCYTE # 0.6 TH/MM3 (1.0-4.8); MEAN CELL VOLUME 78.4 FL (80.0-100.0); MEAN CORPUSCULAR HEMOGLOBIN 25.8 PG (27.0-34.0); MEAN CORPUSCULAR HGB CONC 32.9 % (32.0-36.0); MEAN PLATELET VOLUME 8.3 FL (7.0-11.0); MONO % 0.6 % (0.0-8.0); MONOCYTE # 0.1 TH/MM3 (0-0.9); NEUT % 96.1 % (16.0-70.0); PLATELET COUNT 267 TH/MM3 (150-450); RED BLOOD COUNT 4.79 MIL/MM3 (4.50-5.90); RED CELL DISTRIBUTION WIDTH 14.3 % (11.6-17.2); WHITE BLOOD COUNT 19.5 TH/MM3 (4.0-11.0)
[2017-09-07 06:19] LABS: CHLORIDE 108 MEQ/L (98-107); SODIUM (NA) 140 MEQ/L (136-145)
[2017-09-07 06:23] LABS: CALCIUM 8.6 MG/DL (8.5-10.1)
[2017-09-07 06:24] LABS: ALBUMIN 2.9 GM/DL (3.4-5.0); BICARBONATE 25.4 MEQ/L (21.0-32.0); BLOOD UREA NITROGEN 13 MG/DL (7-18); GLUCOSE,RANDOM 147 MG/DL (74-106)
[2017-09-07 06:27] LABS: ALT (GPT) 17 U/L (12-78); AST (GOT) 15 U/L (15-37); GLOMERULAR FILTRATION RATE 62 ML/MIN (>89)
[2017-09-07 06:29] LABS: TOTAL BILIRUBIN ADULT 0.4 MG/DL (0.2-1.0); TOTAL PROTEIN 7.6 GM/DL (6.4-8.2)
[2017-09-07 06:30] LABS: ALKALINE PHOSPHATASE 93 U/L (45-117)
[2017-09-07] MEDS ORDERED: methylPREDNISolone SOD SUCC 40 MG/1 ML VIAL IV PUSH ONE (07:00)
--- NOTE | 2017-09-07 07:05 | HHI.PR ---
Subjective Remarks Didn't sleep well due to not being able to get comfortable in the bed He believes the steroid helped the rash initially but now rash seems to be more erythematous and somewhat painful particularly in the axillae. Low-grade fever noted Objective Vitals Vital Signs Date Time Temp Pulse Resp B/P (MAP) Pulse Ox O2 Delivery O2 Flow Rate FiO2 09/07/17 04:00 98.3 90 20 139/80 (99) 96 09/07/17 00:00 100.5 105 20 156/86 (109) 100 09/06/17 20:15 99.4 85 20 154/80 (104) 98 09/06/17 20:14 09/06/17 19:23 87 18 146/73 (97) 97 Room Air 09/06/17 15:55 99.4 120 16 155/80 (105) 99 GENERAL: Obese, lying in bed, no acute distress. SKIN: [place], erythematous plaques and patches in the axillary, groins, lower back, and upper chest. Some scaling noted with other areas of satellite lesions. No vesicles or bulla. No petechiae. No areas of splinter hemorrhage. Onycholysis and pitting of nails noted. HEAD: Normocephalic. EYES: No scleral icterus. No injection or drainage. NECK: Supple, trachea midline. No JVD or lymphadenopathy. CARDIOVASCULAR: Regular rate and rhythm. RESPIRATORY: No accessory muscle use. GASTROINTESTINAL: Abdomen soft, non-tender, nondistended. Bowel sounds present. MUSCULOSKELETAL: No cyanosis, or edema. BACK: No CVA tenderness. Result Diagram: 09/07/17 0530 09/07/17 0530 Imaging Last 72 hours Impressions Chest X-Ray 09/06/17 1641 Signed Impressions: Service Date/Time: Wednesday, September 06, 2017 16:53 - CONCLUSION: 1. Minimal linear opacity at the left lung base, presumably atelectasis. Nathan Cedeño MD Urinary Catheter: No Vascular Central Line Catheter: No A/P Problem List: (1) Cellulitis ICD Codes: L03.90 - Cellulitis, unspecified Status: Acute Plan: Possibly source of his fever and leukocytosis. Vancomycin has been administered. I have added Zosyn this morning. We'll continue Diflucan as well. I have consulted to infectious disease. He definitely has some underlying psoriatic lesions as well. Given his fever, leukocytosis, tachycardia and likely skin infection, patient meets criteria for SIRS/borderline sepsis. (2) Leukocytosis ICD Codes: D72.829 - Elevated white blood cell count, unspecified Status: Acute Plan: As above. A CBC elevation of bit worse this morning. Zosyn added. ID consult. (3) Tinea corporis ICD Codes: B35.4 - Tinea corporis Status: Acute Plan: Diflucan. Ketoconazole. Barrier creams. (4) Hypertension ICD Codes: I10 - Essential (primary) hypertension Status: Chronic Plan: Continue medication. (5) GERD (gastroesophageal reflux disease) ICD Codes: K21.9 - Gastro-esophageal reflux disease without esophagitis Status: Chronic Plan: Continue medication. Discharge Planning Will depend upon patient clinical progress. Problem Qualifiers (1) Cellulitis: Qualified Codes: L03.90 - Cellulitis, unspecified (2) Leukocytosis: Qualified Codes: D72.829 - Elevated white blood cell count, unspecified (3) Hypertension: Qualified Codes: I10 - Essential (primary) hypertension Jose Fink MD PhD Sep 07, 2017 07:05
[2017-09-07 08:00] VITALS: BP 115/61; PULSE 75; RESP 18; TEMP 97.7; O2SAT 97
[2017-09-07] MEDS ORDERED: PIPERACIL-TAZO 3.375 GM PREMIX 50 ML IV SCH (08:00)
[2017-09-07] MEDS: LOSARTAN 50 MG TAB PO SCH ×2 (09:20→22:07)
[2017-09-07] MEDS: FLUCONAZOLE 200 MG TAB PO SCH (09:20)
[2017-09-07] MEDS: KETOCONAZOLE 2% CREAM 15 GM TOPICAL SCH (09:20)
[2017-09-07] MEDS: PANTOPRAZOLE SOD 40 MG DELAYED RELEASE TAB PO SCH (09:20)
[2017-09-07] MEDS: LORATADINE 10 MG TAB PO SCH (09:20)
[2017-09-07] MEDS ORDERED: INFLUENZA VIRUS VACCINE (QUADRIVALENT) 0.5 ML SYR IM ONE (10:00)
--- NOTE | 2017-09-07 11:22 | PD.CONS ---
History of Present Illness Service Infectious disease Consult Requested By Dr Marino Fink Reason for Consult Evaluate patient with cellulitis and fever Primary Care Physician Unknown Diagnoses: History of Present Illness Patient seen and examined. Records reviewed. Patient is a 36-year-old male, diagnosed to have psoriasis about a year and a half ago, when he presented with rash on his hip area and axillary area. He went to a explosive ordnance manager in the [facility], and he had a skin biopsy which reportedly confirmed the diagnosis of psoriasis. He was given some topical treatment which would control the rash. Patient also has had problem with acne , and he also has a prescription for doxycycline 100 twice a day which he takes for a short time when he has breakout. More recently about 2-4 weeks ago, he started getting more rash. Started spreading and he noted it on his lower trunk , and it was getting somewhat painful. He had different insurance, so he went [place] explosive ord[place]. Another skin biopsy was done, and the patient was told that there is probably some underlying fungal infection, and he was given ketoconazole, and his doxycycline was changed to minocycline. On , he started noticing spreading of the rash in his upper chest area. On the day of admission he started feeling feverish, and he went to the emergency room on September 06. He did not have any fever at that time, and he was given clindamycin. Patient however started getting worse, and he did not start his antibiotic. He came back to the hospital, and has noted that the rash had worsened in his upper trunk area. His white count was elevated. His temperature had gone up to 100.6. He denies any sore throat. He has a chronic cough related to his reflux. He has not had any nausea or vomiting, diarrhea or any urinary complaints. The rash especially in the groin area and in the axillary area are quite painful. Patient is currently on vancomycin and Zosyn. Infectious disease consultation has been requested to evaluate the patient with cellulitis and fevers. Review of Systems Constitutional: COMPLAINS OF: Fever, Chills Eyes: DENIES: Eye pain Ears, nose, mouth, throat: DENIES: Nasal discharge, Oral lesions, Throat pain, Sinus Pain, Toothache Respiratory: COMPLAINS OF: Cough, DENIES: Sputum production, Shortness of breath Cardiovascular: DENIES: Chest pain, Palpitations Gastrointestinal: DENIES: Abdominal pain, Constipation, Diarrhea, Nausea, Vomiting, Difficulty Swallowing Genitourinary: DENIES: Hematuria, Dysuria, Penile Discharge Musculoskeletal: DENIES: Joint pain, Joint Swelling Integumentary: COMPLAINS OF: Rash Hematologic/lymphatic: DENIES: Lymphadenopathy Neurologic: DENIES: Localized weakness Psychiatric: DENIES: Hallucinations Past Family Social History Allergies: Coded Allergies: codeine (Verified Allergy, Intermediate, Rash, 09/07/17) Breaks out in rash Past Medical History Hypertension Obesity Psoriasis GERD Environmental allergies Past Surgical History None Reported Medications I attest that I obtained, updated or reviewed the home and current medications. Reported Meds & Active Scripts Active Cleocin (Clindamycin HCl) 300 Mg Cap 300 Mg PO Q6H 10 Days Reported Ranitidine 75 (Ranitidine HCl) 75 Mg Tab 75 Mg PO DAILY Take 30 to 60 minutes before eating food or drinking beverages that cause heartburn. Singulair (Montelukast Sodium) 10 Mg Tab 10 Mg PO HS Loratadine Odt (Loratadine) 10 Mg Tab 10 Mg PO DAILY Pantoprazole (Pantoprazole Sodium) 40 Mg Tab 40 Mg PO DAILY Losartan (Losartan Potassium) 50 Mg Tab 50 Mg PO BID Minocycline (Minocycline HCl) 100 Mg Cap 100 Mg PO BID Nystatin Topical (Nystatin) 100,000 unit/gm Cream 1 Applic TOPICAL BID Ketoconazole Topical 2% Cream 1 Applic TOPICAL BID Active Ordered Medications Current Medications Medications (Trade) Dose Ordered Sig/Dave Route Start Time Stop Time Status Last Admin Pharmacy Profile Note 0 ml @ 0 mls/hr UNSCH OTHER 09/06/17 19:30 (Diflucan) 200 mg DAILY PO 09/07/17 09:00 09/07/17 09:20 (Tylenol) 500 mg Q6H PRN PO 09/06/17 19:45 09/07/17 03:42 (Cozaar) 50 mg BID PO 09/06/17 21:00 09/07/17 09:20 (Singulair) 10 mg HS PO 09/06/17 21:00 09/06/17 23:57 (Protonix) 40 mg DAILY PO 09/07/17 09:00 09/07/17 09:20 (Claritin) 10 mg DAILY PO 09/07/17 09:00 09/07/17 09:20 Miscellaneous Information SPECIFIC LAB TO BE DRAWN:VANCOMYCIN TROUGH DATE TO... 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 He dose not look toxic appearing SKIN: Warm and moist. He has confluent erythematous rash with plaques in his upper trunk - back and chest/neck area, as well as in the low trunk/groin, hip areas. Also with round plaques that vary in size scattered in BLE and BUE, buttocks. No ecchymoses and no evidence of embolic lesions. Has some round plaques present on his face. No rash noted on extensor surfaces (elbows or knees). In the groin areas, upper thighs and axillary and upper arms there are very tiny multiple extensive pustular rash noted HEAD: Atraumatic. Normocephalic. No temporal wasting, or tenderness. EYES: [place] conjunctiva. No petechia or hemorrhage. Pupils equal, round and reactive to light. Extraocular movements full and intact. No scleral icterus. No injection or drainage. EARS, NOSE AND THROAT: Nose without bleeding or purulent nasal discharge. No sinus tenderness. Mucous membranes pink and moist. No oral lesions noted. No exudate. No oral thrush. NECK: Trachea midline. Supple and not tender, no meningeal signs CARDIOVASCULAR: Regular rate and rhythm. No murmurs, rubs or gallops heard RESPIRATORY: Clear to auscultation. Breath sounds equal bilaterally. No rales , wheezing or rhonchi ABDOMEN: Soft, non-tender, nondistended. Bowel sounds present and normoactive. No guarding. No rebound. No organomegaly. EXTREMITIES: No clubbing, cyanosis, or edema.No joint effusion, has good ROM. No calf tenderness. Well perfused and warm. NEUROLOGICAL: Awake and alert. Cranial nerves grossly intact. Motor grossly within normal limits. PSYCHIATRIC: Normal affect, calm and cooperative. LINE: No evidence of infection Laboratory Laboratory Tests Test 09/06/17 16:50 09/06/17 17:00 09/07/17 05:30 09/07/17 10:50 White Blood Count 17.0 19.5 Red Blood Count 5.03 4.79 Hemoglobin 12.8 12.3 Hematocrit 39.0 37.5 Mean Corpuscular Volume 77.6 78.4 Mean Corpuscular Hemoglobin 25.4 25.8 Mean Corpuscular Hemoglobin Concent 32.7 32.9 Red Cell Distribution Width 14.1 14.3 Platelet Count 306 267 Mean Platelet Volume 8.1 8.3 Neutrophils (%) (Auto) 89.4 96.1 Lymphocytes (%) (Auto) 5.9 3.2 Monocytes (%) (Auto) 4.0 0.6 Eosinophils (%) (Auto) 0.5 0.0 Basophils (%) (Auto) 0.2 0.1 Neutrophils # (Auto) 15.2 18.8 Lymphocytes # (Auto) 1.0 0.6 Monocytes # (Auto) 0.7 0.1 Eosinophils # (Auto) 0.1 0.0 Basophils # (Auto) 0.0 0.0 CBC Comment DIFF FINAL DIFF FINAL Differential Comment Prothrombin Time 11.0 Prothromb Time International Ratio 1.1 Activated Partial Thromboplast Time 32.1 Blood Urea Nitrogen 14 13 Creatinine 1.30 1.30 Random Glucose 103 147 Total Protein 7.8 7.6 Albumin 3.1 2.9 Calcium Level 8.4 8.6 Alkaline Phosphatase 96 93 Aspartate Amino Transf (AST/SGOT) 13 15 Alanine Aminotransferase (ALT/SGPT) 18 17 Total Bilirubin 0.5 0.4 Sodium Level 137 140 Potassium Level 3.8 4.2 Chloride Level 103 108 Carbon Dioxide Level 26.5 25.4 Anion Gap 8 7 Estimat Glomerular Filtration Rate 62 62 Lactic Acid Level 1.1 C-Reactive Protein 12.30 Urine Color YELLOW Urine Turbidity CLEAR Urine pH 5.5 Urine Specific [place] 1.021 Urine Protein NEG Urine Glucose (UA) NEG Urine Ketones NEG Urine Occult Blood TRACE Urine Nitrite NEG Urine Bilirubin NEG Urine Leukocyte Esterase TRACE Urine RBC 0-3 Urine WBC 0-2 Urine Squamous Epithelial Cells 0-5 Microscopic Urinalysis Comment CATH-CULT NOT IND Date/Time Source Procedure Growth Status 09/06/17 16:55 Blood Peripheral Aerobic Blood Culture - Preliminary NO GROWTH IN 1 DAY Resulted 09/06/17 16:55 Blood Peripheral Anaerobic Blood Culture - Preliminary NO GROWTH IN 1 DAY Resulted Result Diagram: 09/07/17 0530 09/07/17 0530 Imaging RADIOLOGY STUDIES/FILMS REVIEWED Chest X-Ray 09/06/17 1641 Signed Impressions: Service Date/Time: Wednesday, September 06, 2017 16:53 - CONCLUSION: 1. Minimal linear opacity at the left lung base, presumably atelectasis. Nathan Cedeño MD Assessment and Plan Assessment and Plan IMPRESSION Severe psoriasis with secondary bacterial infection of rash in groin/thighs and armpits/upper arms Sepsis syndrome due tp cellulitis Obesity Leukocytosis, worse, likely due to steroids that he received RECOMMENDATION Get the biopsy report from his explosive ordnance manager IV Ancef and Levaquin Follow C/S Follow temps and CBC Monitor progress I will follow along with you Thank you for this consultation Discussed Condition With Explained plan to patient and Deborah Snell MD Sep 07, 2017 11:22
[2017-09-07] MEDS ORDERED: LEVOFLOXACIN 750 MG TAB PO SCH (11:30)
[2017-09-07 12:00] VITALS: BP 125/67; PULSE 90; RESP 18; TEMP 96.9; O2SAT 96
[2017-09-07] MEDS: ceFAZolin 2 GM PREMIX 50 ML IV SCH ×2 (12:48→22:06)
[2017-09-07] MEDS: PETROLATUM 49%/ZINC OXIDE 15% 4 OUNCE TUBE TOPICAL SCH (12:48)
[2017-09-07 20:00] VITALS: BP 126/68; PULSE 84; RESP 16; TEMP 98.1; O2SAT 98
[2017-09-07] MEDS: MONTELUKAST SODIUM 10 MG TAB PO SCH (22:07)
[2017-09-07] MEDS: ACETAMINOPHEN/HYDROcodone 325 MG/5 MG TAB PO PRN (22:07)
[2017-09-08] VITALS: BP 124/75; PULSE 76; RESP 16; TEMP 98.3; O2SAT 95
[2017-09-08] MEDS: ceFAZolin 2 GM PREMIX 50 ML IV SCH ×3 (05:43→21:10)
[2017-09-08 06:38] LABS: AUTOMATED NEUTROPHIL # 23.6 TH/MM3 (1.8-7.7); BASOPHIL # 0.2 TH/MM3 (0-0.2); BASOPHIL % 0.7 % (0.0-2.0); EOSINOPHIL # 0.2 TH/MM3 (0-0.4); EOSINOPHIL % 0.6 % (0.0-4.0); HEMATOCRIT 37.5 % (39.0-51.0); HEMOGLOBIN 12.1 GM/DL (13.0-17.0); LYMPHOCYTE # 1.3 TH/MM3 (1.0-4.8); MEAN CELL VOLUME 79.3 FL (80.0-100.0); MEAN CORPUSCULAR HEMOGLOBIN 25.6 PG (27.0-34.0); MEAN CORPUSCULAR HGB CONC 32.3 % (32.0-36.0); MEAN PLATELET VOLUME 8.3 FL (7.0-11.0); MONO % 3.5 % (0.0-8.0); MONOCYTE # 0.9 TH/MM3 (0-0.9); NEUT % 90.2 % (16.0-70.0); PLATELET COUNT 263 TH/MM3 (150-450); RED BLOOD COUNT 4.74 MIL/MM3 (4.50-5.90); RED CELL DISTRIBUTION WIDTH 14.3 % (11.6-17.2); WHITE BLOOD COUNT 26.2 TH/MM3 (4.0-11.0)
[2017-09-08] MEDS ORDERED: DOCUSATE SODIUM 50 MG/SENNA 8.6 MG TAB PO PRN (07:45)
[2017-09-08 08:00] VITALS: BP 113/58; PULSE 69; RESP 19; TEMP 96.2; O2SAT 100
--- NOTE | 2017-09-08 08:14 | HHI.PR ---
Subjective Remarks Slept a little better. Still with some pain near severe rash sites at times. Rash is less red, but has spread a bit more with more pustule formation. No longer having any weeping from rash in groin/axillae. No more fevers. tolerating PO well. +BM and good UOP per pt. Objective Vitals Vital Signs Date Time Temp Pulse Resp B/P (MAP) Pulse Ox O2 Delivery O2 Flow Rate FiO2 09/08/17 00:00 98.3 76 16 124/75 (91) 95 09/07/17 20:00 98.1 84 16 126/68 (87) 98 09/07/17 12:00 96.9 90 18 125/67 (86) 96 09/07/17 08:00 97.7 75 18 115/61 (79) 97 GENERAL: Obese, lying in bed, no acute distress. SKIN: Confluent, erythematous plaques and patches in the axillae, groins, lower back, and upper chest. Some scaling noted with other areas of satellite lesions and peripheral pustule formation. No vesicles or bulla. No petechiae. No areas of splinter hemorrhage. Onycholysis and pitting of nails noted. No weeping or d/c from wounds. HEAD: Normocephalic. EYES: No scleral icterus. No injection or drainage. NECK: Supple, trachea midline. No JVD or lymphadenopathy. CARDIOVASCULAR: Regular rate and rhythm. No murmur. Distant heart sounds. RESPIRATORY: No accessory muscle use. GASTROINTESTINAL: Abdomen soft, non-tender, nondistended. Bowel sounds present. No G/R. MUSCULOSKELETAL: No cyanosis, or edema. BACK: No CVA tenderness. Result Diagram: 09/08/17 0550 09/07/17 0530 Imaging Last 72 hours Impressions Chest X-Ray 09/06/17 1641 Signed Impressions: Service Date/Time: Wednesday, September 06, 2017 16:53 - CONCLUSION: 1. Minimal linear opacity at the left lung base, presumably atelectasis. Nathan Cedeño MD Urinary Catheter: No Vascular Central Line Catheter: No A/P Problem List: (1) Cellulitis ICD Codes: L03.90 - Cellulitis, unspecified Status: Acute Plan: Possibly source of his fever and leukocytosis. We'll continue Diflucan and abx. Appreciate ID input. 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 He doesn't appear toxic, but rash is a bit worse. 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 Pt does not appear toxic. Current flare may be a/w recent med changes. (3) Leukocytosis ICD Codes: D72.829 - Elevated white blood cell count, unspecified Status: Acute Plan: As above. A CBC elevation of bit worse this morning. Abx adjusted per ID. WBC elevation may be a/w steroid administration and the underlying generalized pustular psoriasis. (4) Tinea corporis ICD Codes: B35.4 - Tinea corporis Status: Acute Plan: Diflucan. Ketoconazole. Barrier creams. (5) Hypertension ICD Codes: I10 - Essential (primary) hypertension Status: Chronic Plan: Continue medication. (6) GERD (gastroesophageal reflux disease) ICD Codes: K21.9 - Gastro-esophageal reflux disease without esophagitis Status: Chronic Plan: Continue medication. Discharge Planning Will depend upon patient clinical progress. Problem Qualifiers (1) Cellulitis: Qualified Codes: L03.90 - Cellulitis, unspecified (2) Leukocytosis: Qualified Codes: D72.829 - Elevated white blood cell count, unspecified (3) Hypertension: Qualified Codes: I10 - Essential (primary) hypertension Jose Fink MD PhD Sep 08, 2017 08:14
--- NOTE | 2017-09-08 08:51 | HHI.IDPN ---
Subjective Subjective Remarks Patient is a 36-year-old male, diagnosed to have psoriasis about a year and a half ago, when he presented with rash on his hip area and axillary area. He went to a control panel assembler [place], and he had a skin biopsy which reportedly confirmed the diagnosis of psoriasis. He was given some topical treatment which would control the rash. Patient also has had problem with acne , and he also has a prescription for doxycycline 100 twice a day which he takes for a short time when he has breakout. More recently about 2-4 weeks ago, he started getting more rash. Started spreading and he noted it on his lower trunk , and it was getting somewhat painful. He had different insurance, so he went [place] control panel assembl[place]. Another skin biopsy was done, and the patient was told that there is probably some underlying fungal infection, and he was given ketoconazole, and his doxycycline was changed to minocycline. On , he started noticing spreading of the rash in his upper chest area. On the day of admission he started feeling feverish, and he went to the emergency room on September 06. He did not have any fever at that time, and he was given clindamycin. Patient however started getting worse, and he did not start his antibiotic. He came back to the hospital, and has noted that the rash had worsened in his upper trunk area. His white count was elevated. His temperature had gone up to 100.6. He denies any sore throat. He has a chronic cough related to his reflux. He has not had any nausea or vomiting, diarrhea or any urinary complaints. The rash especially in the groin area and in the axillary area are quite painful. Patient is currently on vancomycin and Zosyn. Infectious disease consultation has been requested to evaluate the patient with cellulitis and fevers. Notes reviewed Temps ok C/O some more discomfort in his neck area and upper chest WBC is higher Cultures negative Antibiotics Current Medications Ancef Levaquin Diflucan Medications (Trade) Dose Ordered Sig/Dave Route Start Time Stop Time Status Last Admin (Diflucan) 200 mg DAILY PO 09/07/17 09:00 09/07/17 09:20 (Tylenol) 500 mg Q6H PRN PO 09/06/17 19:45 09/07/17 03:42 (Cozaar) 50 mg BID PO 09/06/17 21:00 09/07/17 22:07 (Singulair) 10 mg HS PO 09/06/17 21:00 09/07/17 22:07 (Protonix) 40 mg DAILY PO 09/07/17 09:00 09/07/17 09:20 (Claritin) 10 mg DAILY PO 09/07/17 09:00 09/07/17 09:20 (Sensi-Care Protective Barrier Oint) 1 applic DAILY TOPICAL 09/07/17 09:00 09/07/17 12:48 (Nizoral 2% Cream) 1 applic DAILY TOPICAL 09/07/17 09:00 09/07/17 09:20 ([place] 5-325 Mg) 1 tab Q6H PRN PO 09/07/17 07:00 09/07/17 22:07 Cefazolin Sodium/ Dextrose 50 ml @ 100 mls/hr Q8H IV 09/07/17 14:00 09/08/17 05:43 (Levaquin) 750 mg DAILY@1100 PO 09/07/17 11:30 09/07/17 12:48 (Pepcid) 20 mg BID PO 09/08/17 09:00 (Cate-Colace) 1 tab DAILY PRN PO 09/08/17 07:45 (Xanax) 0.25 mg Q8H PRN PO 09/08/17 07:45 (Lovenox Inj) 40 mg Q24H SQ 09/08/17 09:00 Lines PIV Past Medical History Hypertension Obesity Psoriasis GERD Environmental allergies Allergies: Coded Allergies: codeine (Verified Allergy, Intermediate, Rash, 09/07/17) Breaks out in rash Objective . Vital Signs Date Time Temp Pulse Resp B/P (MAP) Pulse Ox O2 Delivery O2 Flow Rate FiO2 09/08/17 08:00 96.2 69 19 113/58 (76) 100 09/08/17 00:00 98.3 76 16 124/75 (91) 95 09/07/17 20:00 98.1 84 16 126/68 (87) 98 09/07/17 12:00 96.9 90 18 125/67 (86) 96 . Laboratory Tests Test 09/06/17 16:50 09/07/17 05:30 09/08/17 05:50 White Blood Count 17.0 TH/MM3 19.5 TH/MM3 26.2 TH/MM3 Red Blood Count 5.03 MIL/MM3 4.79 MIL/MM3 4.74 MIL/MM3 Hemoglobin 12.8 GM/DL 12.3 GM/DL 12.1 GM/DL Hematocrit 39.0 % 37.5 % 37.5 % Mean Corpuscular Volume 77.6 FL 78.4 FL 79.3 FL Mean Corpuscular Hemoglobin 25.4 PG 25.8 PG 25.6 PG Mean Corpuscular Hemoglobin Concent 32.7 % 32.9 % 32.3 % Red Cell Distribution Width 14.1 % 14.3 % 14.3 % Platelet Count 306 TH/MM3 267 TH/MM3 263 TH/MM3 Mean Platelet Volume 8.1 FL 8.3 FL 8.3 FL Neutrophils (%) (Auto) 89.4 % 96.1 % 90.2 % Lymphocytes (%) (Auto) 5.9 % 3.2 % 5.0 % Monocytes (%) (Auto) 4.0 % 0.6 % 3.5 % Eosinophils (%) (Auto) 0.5 % 0.0 % 0.6 % Basophils (%) (Auto) 0.2 % 0.1 % 0.7 % Neutrophils # (Auto) 15.2 TH/MM3 18.8 TH/MM3 23.6 TH/MM3 Lymphocytes # (Auto) 1.0 TH/MM3 0.6 TH/MM3 1.3 TH/MM3 Monocytes # (Auto) 0.7 TH/MM3 0.1 TH/MM3 0.9 TH/MM3 Eosinophils # (Auto) 0.1 TH/MM3 0.0 TH/MM3 0.2 TH/MM3 Basophils # (Auto) 0.0 TH/MM3 0.0 TH/MM3 0.2 TH/MM3 CBC Comment DIFF FINAL DIFF FINAL AUTO DIFF Differential Comment AUTO DIFF CONFIRMED Laboratory Tests Test 09/06/17 16:50 09/07/17 05:30 09/08/17 05:50 Blood Urea Nitrogen 14 MG/DL 13 MG/DL Creatinine 1.30 MG/DL 1.30 MG/DL Random Glucose 103 MG/DL 147 MG/DL Total Protein 7.8 GM/DL 7.6 GM/DL Albumin 3.1 GM/DL 2.9 GM/DL Calcium Level 8.4 MG/DL 8.6 MG/DL Alkaline Phosphatase 96 U/L 93 U/L Aspartate Amino Transf (AST/SGOT) 13 U/L 15 U/L Alanine Aminotransferase (ALT/SGPT) 18 U/L 17 U/L Total Bilirubin 0.5 MG/DL 0.4 MG/DL Sodium Level 137 MEQ/L 140 MEQ/L Potassium Level 3.8 MEQ/L 4.2 MEQ/L Chloride Level 103 MEQ/L 108 MEQ/L Carbon Dioxide Level 26.5 MEQ/L 25.4 MEQ/L Anion Gap 8 MEQ/L 7 MEQ/L Estimat Glomerular Filtration Rate 62 ML/MIN 62 ML/MIN Lactic Acid Level 1.1 mmol/L C-Reactive Protein 12.30 MG/DL Microbiology Date/Time Source Procedure Growth Status 09/06/17 16:55 Blood Peripheral Aerobic Blood Culture - Preliminary NO GROWTH IN 1 DAY Resulted 09/06/17 16:55 Blood Peripheral Anaerobic Blood Culture - Preliminary NO GROWTH IN 1 DAY Resulted 09/06/17 16:50 Blood Peripheral Aerobic Blood Culture - Preliminary NO GROWTH IN 1 DAY Resulted 09/06/17 16:50 Blood Peripheral Anaerobic Blood Culture - Preliminary NO GROWTH IN 1 DAY Resulted 09/08/17 04:34 Nasal Aspirate Influenza Types A,B Antigen (KALIE) - Final NEGATIVE FOR FLU A AND B ANTIGEN.... Complete Imaging Last Impressions Chest X-Ray 09/06/17 1641 Signed Impressions: Service Date/Time: Wednesday, September 06, 2017 16:53 - CONCLUSION: 1. Minimal linear opacity at the left lung base, presumably atelectasis. Nathan Cedeño MD Physical Exam GENERAL: awake and alert, not in respiratory distress. He dose not look toxic appearing SKIN: Warm and moist. He has confluent erythematous rash with plaques in his upper trunk - back and chest/neck area, as well as in the low trunk/groin, hip areas. Also with round plaques that vary in size scattered in BLE and BUE, buttocks. No ecchymoses and no evidence of embolic lesions. Has some round plaques present on his face. No rash noted on extensor surfaces (elbows or knees). In the groin areas, upper thighs and axillary and upper arms there are very tiny multiple extensive pustular rash noted and now also noted in the upper chest/shoulder areas HEAD: Atraumatic. Normocephalic. No temporal wasting, or tenderness. EYES: [place] conjunctiva. No petechia or hemorrhage. Pupils equal, round and reactive to light. Extraocular movements full and intact. No scleral icterus. No injection or drainage. EARS, NOSE AND THROAT: Nose without bleeding or purulent nasal discharge. No sinus tenderness. Mucous membranes pink and moist. No oral lesions noted. No exudate. No oral thrush. NECK: Trachea midline. Supple and not tender, no meningeal signs CARDIOVASCULAR: Regular rate and rhythm. No murmurs, rubs or gallops heard RESPIRATORY: Clear to auscultation. Breath sounds equal bilaterally. No rales , wheezing or rhonchi ABDOMEN: Soft, non-tender, nondistended. Bowel sounds present and normoactive. No guarding. No rebound. No organomegaly. EXTREMITIES: No clubbing, cyanosis, or edema.No joint effusion, has good ROM. No calf tenderness. Well perfused and warm. NEUROLOGICAL: Awake and alert. Cranial nerves grossly intact. Motor grossly within normal limits. PSYCHIATRIC: Normal affect, calm and cooperative. LINE: No evidence of infection Assessment & Plan Remarks IMPRESSION Severe psoriasis with ?secondary bacterial infection of rash in groin/thighs and armpits/upper arms (pustular), or the pustular rash is part of his severe/ extensive psoriasis - temps better Sepsis syndrome due to cellulitis, better Obesity Leukocytosis, worse, likely due to steroids that he received RECOMMENDATION Get the biopsy report from his control panel assembler Continue IV Ancef Stop Levaquin Follow C/S Follow temps and CBC Monitor progress D/W Dr Fink If no further fevers, could D/C with short course of Keflex 500 QID x 7 days Deborah Snell MD Sep 08, 2017 08:51
[2017-09-08] MEDS: FAMOTIDINE 20 MG TAB PO SCH ×2 (09:00→21:09)
[2017-09-08] MEDS: LORATADINE 10 MG TAB PO SCH (09:00)
[2017-09-08] MEDS: ENOXAPARIN SODIUM 40 MG/0.4 ML SYRINGE SQ SCH (09:00)
[2017-09-08] MEDS: LOSARTAN 50 MG TAB PO SCH ×2 (09:00→21:09)
[2017-09-08] MEDS: FLUCONAZOLE 200 MG TAB PO SCH (09:00)
[2017-09-08] MEDS: PANTOPRAZOLE SOD 40 MG DELAYED RELEASE TAB PO SCH (09:00)
[2017-09-08] MEDS: KETOCONAZOLE 2% CREAM 15 GM TOPICAL SCH (09:01)
[2017-09-08] MEDS: PETROLATUM 49%/ZINC OXIDE 15% 4 OUNCE TUBE TOPICAL SCH (09:01)
[2017-09-08] MEDS: ACETAMINOPHEN/HYDROcodone 325 MG/5 MG TAB PO PRN ×3 (09:10→21:27)
[2017-09-08 12:00] VITALS: BP 113/55; PULSE 76; RESP 18; TEMP 97.1; O2SAT 99
[2017-09-08 12:03] VITALS: BP 113/55; PULSE 76; RESP 18; TEMP 97.1; O2SAT 99
--- NOTE | 2017-09-08 13:51 | HHI.PR ---
Addendum to Inpatient Note Addendum Reason: Additional Documentation Additional Information I spoke with Dr Snell re: case earlier today. She doesn't believe pt is toxic. I discussed case with pt's drain tiler, Dr Tao. He also believes pt has pustular psoriasis. We discussed several tx options and agreed upon MTX. I d/w pt and he is agreeable. Will start med today. CRP trending down and no f/ c. Jose Fink MD PhD Sep 08, 2017 13:51
[2017-09-08] MEDS ORDERED: METHOTREXATE 2.5 MG TAB PO SCH (15:00)
[2017-09-08 16:06] VITALS: BP 113/56; PULSE 78; RESP 18; TEMP 98.5; O2SAT 100
[2017-09-08 20:00] VITALS: BP 126/58; PULSE 98; RESP 18; TEMP 99.8; O2SAT 100
[2017-09-08] MEDS ORDERED: VANCOMYCIN TROUGH ONE (20:45)
[2017-09-08] MEDS: MONTELUKAST SODIUM 10 MG TAB PO SCH (21:09)
[2017-09-08] MEDS: ALPRAZolam 0.25 MG TAB PO PRN (21:26)
[2017-09-08] MEDS: ACETAMINOPHEN 500 MG CPLT PO PRN (23:10)
[2017-09-09] VITALS: BP 103/55; PULSE 89; RESP 17; TEMP 101.6; O2SAT 96
[2017-09-09] MEDS: ceFAZolin 2 GM PREMIX 50 ML IV SCH ×3 (05:48→22:37)
[2017-09-09 08:00] VITALS: BP 144/92; PULSE 95; RESP 14; TEMP 99.7; O2SAT 100
[2017-09-09 08:14] LABS: AUTOMATED NEUTROPHIL # 15.2 TH/MM3 (1.8-7.7); BASOPHIL # 0.1 TH/MM3 (0-0.2); BASOPHIL % 0.4 % (0.0-2.0); EOSINOPHIL # 0.3 TH/MM3 (0-0.4); EOSINOPHIL % 1.6 % (0.0-4.0); HEMATOCRIT 38.2 % (39.0-51.0); HEMOGLOBIN 12.3 GM/DL (13.0-17.0); LYMPH % 8.2 % (9.0-44.0); LYMPHOCYTE # 1.5 TH/MM3 (1.0-4.8); MEAN CELL VOLUME 78.2 FL (80.0-100.0); MEAN CORPUSCULAR HEMOGLOBIN 25.2 PG (27.0-34.0); MEAN CORPUSCULAR HGB CONC 32.2 % (32.0-36.0); MEAN PLATELET VOLUME 7.8 FL (7.0-11.0); MONO % 3.6 % (0.0-8.0); MONOCYTE # 0.6 TH/MM3 (0-0.9); NEUT % 86.2 % (16.0-70.0); PLATELET COUNT 265 TH/MM3 (150-450); RED BLOOD COUNT 4.88 MIL/MM3 (4.50-5.90); RED CELL DISTRIBUTION WIDTH 14.3 % (11.6-17.2); WHITE BLOOD COUNT 17.7 TH/MM3 (4.0-11.0)
[2017-09-09 08:23] LABS: CHLORIDE 103 MEQ/L (98-107); SODIUM (NA) 137 MEQ/L (136-145)
[2017-09-09 08:27] LABS: CALCIUM 8.7 MG/DL (8.5-10.1)
[2017-09-09 08:28] LABS: ALBUMIN 2.5 GM/DL (3.4-5.0); BICARBONATE 26.5 MEQ/L (21.0-32.0); BLOOD UREA NITROGEN 16 MG/DL (7-18); GLUCOSE,RANDOM 92 MG/DL (74-106)
[2017-09-09 08:31] LABS: ALT (GPT) 17 U/L (12-78); AST (GOT) 12 U/L (15-37); GLOMERULAR FILTRATION RATE 62 ML/MIN (>89)
[2017-09-09 08:32] LABS: TOTAL BILIRUBIN ADULT 0.4 MG/DL (0.2-1.0); TOTAL PROTEIN 6.9 GM/DL (6.4-8.2)
[2017-09-09 08:34] LABS: ALKALINE PHOSPHATASE 88 U/L (45-117)
--- NOTE | 2017-09-09 08:51 | HHI.PR ---
Subjective Remarks Patient reports he feels about the same. Has noted that lesion seemed to be drying a bit. Had isolated fever overnight. Seems to have tolerated the methotrexate fine. Objective Vitals Vital Signs Date Time Temp Pulse Resp B/P (MAP) Pulse Ox O2 Delivery O2 Flow Rate FiO2 09/09/17 00:00 101.6 89 17 103/55 (71) 96 09/08/17 20:00 99.8 98 18 126/58 (80) 100 09/08/17 16:06 98.5 78 18 113/56 (75) 100 09/08/17 12:03 97.1 76 18 113/55 (74) 99 09/08/17 12:00 97.1 76 18 113/55 (74) 99 GENERAL: Obese, lying in bed, no acute distress. Alert and oriented. SKIN: Confluent, erythematous plaques and patches in the axillae, groins, lower back, and upper chest. Some scaling noted with other areas of satellite lesions and peripheral pustule formation. Peripheral pustulation has decreased on today's exam and rash seems to be drying a bit. No vesicles or bulla. No petechiae. No areas of splinter hemorrhage. Onycholysis and pitting of nails noted. No weeping or d/c from wounds. HEAD: Normocephalic. EYES: No scleral icterus. No injection or drainage. NECK: Supple, trachea midline. No JVD or lymphadenopathy. CARDIOVASCULAR: Regular rate and rhythm. No murmur. Distant heart sounds. RESPIRATORY: No accessory muscle use. GASTROINTESTINAL: Abdomen soft, non-tender, nondistended. Bowel sounds present. No G/R. MUSCULOSKELETAL: No cyanosis, or edema. BACK: No CVA tenderness. Result Diagram: 09/08/17 0550 09/09/17 0800 Imaging Last 72 hours Impressions Chest X-Ray 09/06/17 1641 Signed Impressions: Service Date/Time: Wednesday, September 06, 2017 16:53 - CONCLUSION: 1. Minimal linear opacity at the left lung base, presumably atelectasis. Nathan Cedeño MD Urinary Catheter: No Vascular Central Line Catheter: No A/P Problem List: (1) Cellulitis ICD Codes: L03.90 - Cellulitis, unspecified Status: Acute Plan: Possibly source of his fever and leukocytosis. We'll continue Diflucan and abx. Appreciate ID input. 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 He doesn't appear toxic, but rash worsened a bit after steroids. (2) Pustular psoriasis ICD Codes: L40.1 - Generalized pustular psoriasis Status: Acute Plan: I discussed with his outpatient continuous process coffee roaster, Dr. Fernando yesterday. Based on my description he agrees she likely has a pustular psoriasis. Methotrexate was initiated and he seemed to have tolerated it well. Did have isolated fever overnight which could be a drug fever. We'll continue to follow closely. Pt does not appear toxic. Current flare may be a/w recent med changes. (3) Leukocytosis ICD Codes: D72.829 - Elevated white blood cell count, unspecified Status: Acute Plan: As above. A CBC elevation of bit worse this morning. Abx adjusted per ID. WBC elevation may be a/w steroid administration and the underlying generalized pustular psoriasis. (4) Tinea corporis ICD Codes: B35.4 - Tinea corporis Status: Acute Plan: Diflucan. Ketoconazole. Barrier creams. (5) Hypertension ICD Codes: I10 - Essential (primary) hypertension Status: Chronic Plan: Well-controlled. Continue medication. (6) GERD (gastroesophageal reflux disease) ICD Codes: K21.9 - Gastro-esophageal reflux disease without esophagitis Status: Chronic Plan: Continue medication. Discharge Planning Will depend upon patient clinical progress. Hopefully discharge home tomorrow if no more fever, labs stabilize and rash continues to dry. Patient is understanding and quite cooperative regarding his hospital stay and need for continued monitoring. Problem Qualifiers (1) Cellulitis: Qualified Codes: L03.90 - Cellulitis, unspecified (2) Leukocytosis: Qualified Codes: D72.829 - Elevated white blood cell count, unspecified (3) Hypertension: Qualified Codes: I10 - Essential (primary) hypertension Jose Fink MD PhD Sep 09, 2017 08:51
[2017-09-09] MEDS: PETROLATUM 49%/ZINC OXIDE 15% 4 OUNCE TUBE TOPICAL SCH (09:26)
[2017-09-09] MEDS: KETOCONAZOLE 2% CREAM 15 GM TOPICAL SCH (09:27)
[2017-09-09] MEDS: ACETAMINOPHEN/HYDROcodone 325 MG/5 MG TAB PO PRN ×3 (09:31→23:17)
[2017-09-09] MEDS: ENOXAPARIN SODIUM 40 MG/0.4 ML SYRINGE SQ SCH (09:32)
[2017-09-09] MEDS: LORATADINE 10 MG TAB PO SCH (09:32)
[2017-09-09] MEDS: FOLIC ACID 1 MG TAB PO SCH (09:32)
[2017-09-09] MEDS: LOSARTAN 50 MG TAB PO SCH ×2 (09:33→20:31)
[2017-09-09] MEDS: PANTOPRAZOLE SOD 40 MG DELAYED RELEASE TAB PO SCH (09:33)
[2017-09-09] MEDS: FLUCONAZOLE 200 MG TAB PO SCH (09:33)
[2017-09-09] MEDS: FAMOTIDINE 20 MG TAB PO SCH ×2 (09:33→20:31)
[2017-09-09 12:00] VITALS: BP 130/76; PULSE 101; RESP 16; TEMP 98.4; O2SAT 96
--- NOTE | 2017-09-09 14:04 | HHI.IDPN ---
Subjective Subjective Remarks Patient is a 36-year-old male, diagnosed to have psoriasis about a year and a half ago, when he presented with rash on his hip area and axillary area. He went to a trace evidence technician in the biliary, and he had a skin biopsy which reportedly confirmed the diagnosis of psoriasis. He was given some topical treatment which would control the rash. Patient also has had problem with acne , and he also has a prescription for doxycycline 100 twice a day which he takes for a short time when he has breakout. More recently about 2-4 weeks ago, he started getting more rash. Started spreading and he noted it on his lower trunk , and it was getting somewhat painful. He had different insurance, so he went to [place] trace evidence [place]. Another skin biopsy was done, and the patient was told that there is probably some underlying fungal infection, and he was given ketoconazole, and his doxycycline was changed to minocycline. On , he started noticing spreading of the rash in his upper chest area. On the day of admission he started feeling feverish, and he went to the emergency room on September 06. He did not have any fever at that time, and he was given clindamycin. Patient however started getting worse, and he did not start his antibiotic. He came back to the hospital, and has noted that the rash had worsened in his upper trunk area. His white count was elevated. His temperature had gone up to 100.6. He denies any sore throat. He has a chronic cough related to his reflux. He has not had any nausea or vomiting, diarrhea or any urinary complaints. The rash especially in the groin area and in the axillary area are quite painful. Patient is currently on vancomycin and Zosyn. Infectious disease consultation has been requested to evaluate the patient with cellulitis and fevers. Notes reviewed Had one fever spike at midnight Feels better Had MTX started WBC is higher Cultures negative Antibiotics Current Medications Ancef Diflucan Medications (Trade) Dose Ordered Sig/Dave Route Start Time Stop Time Status Last Admin (Diflucan) 200 mg DAILY PO 09/07/17 09:00 09/09/17 09:33 (Tylenol) 500 mg Q6H PRN PO 09/06/17 19:45 09/08/17 23:10 (Cozaar) 50 mg BID PO 09/06/17 21:00 09/09/17 09:33 (Singulair) 10 mg HS PO 09/06/17 21:00 09/08/17 21:09 (Protonix) 40 mg DAILY PO 09/07/17 09:00 09/09/17 09:33 (Claritin) 10 mg DAILY PO 09/07/17 09:00 09/09/17 09:32 (Sensi-Care Protective Barrier Oint) 1 applic DAILY TOPICAL 09/07/17 09:00 09/09/17 09:26 (Nizoral 2% Cream) 1 applic DAILY TOPICAL 09/07/17 09:00 09/09/17 09:27 ([place] 5-325 Mg) 1 tab Q6H PRN PO 09/07/17 07:00 09/09/17 09:31 Cefazolin Sodium/ Dextrose 50 ml @ 100 mls/hr Q8H IV 09/07/17 14:00 09/09/17 13:06 (Pepcid) 20 mg BID PO 09/08/17 09:00 09/09/17 09:33 (Cate-Colace) 1 tab DAILY PRN PO 09/08/17 07:45 (Xanax) 0.25 mg Q8H PRN PO 09/08/17 07:45 09/08/17 21:26 (Lovenox Inj) 40 mg Q24H SQ 09/08/17 09:00 09/09/17 09:32 (Rheumatrex) 7.5 mg Q7D PO 09/08/17 15:00 09/08/17 15:25 (Folate) 1 mg DAILY PO 09/09/17 09:00 09/09/17 09:32 Lines PIV Past Medical History Hypertension Obesity Psoriasis GERD Environmental allergies Allergies: Coded Allergies: codeine (Verified Allergy, Intermediate, Rash, 09/07/17) Breaks out in rash Objective . Vital Signs Date Time Temp Pulse Resp B/P (MAP) Pulse Ox O2 Delivery O2 Flow Rate FiO2 09/09/17 08:00 99.7 95 14 144/92 (109) 100 09/09/17 00:00 101.6 89 17 103/55 (71) 96 09/08/17 20:00 99.8 98 18 126/58 (80) 100 09/08/17 16:06 98.5 78 18 113/56 (75) 100 09/09/17 09/09/17 09/10/17 15:00 23:00 07:00 Intake Total 240 ml Balance 240 ml Intake Oral 240 ml . Laboratory Tests Test 09/08/17 05:50 09/09/17 08:00 White Blood Count 26.2 TH/MM3 17.7 TH/MM3 Red Blood Count 4.74 MIL/MM3 4.88 MIL/MM3 Hemoglobin 12.1 GM/DL 12.3 GM/DL Hematocrit 37.5 % 38.2 % Mean Corpuscular Volume 79.3 FL 78.2 FL Mean Corpuscular Hemoglobin 25.6 PG 25.2 PG Mean Corpuscular Hemoglobin Concent 32.3 % 32.2 % Red Cell Distribution Width 14.3 % 14.3 % Platelet Count 263 TH/MM3 265 TH/MM3 Mean Platelet Volume 8.3 FL 7.8 FL Neutrophils (%) (Auto) 90.2 % 86.2 % Lymphocytes (%) (Auto) 5.0 % 8.2 % Monocytes (%) (Auto) 3.5 % 3.6 % Eosinophils (%) (Auto) 0.6 % 1.6 % Basophils (%) (Auto) 0.7 % 0.4 % Neutrophils # (Auto) 23.6 TH/MM3 15.2 TH/MM3 Lymphocytes # (Auto) 1.3 TH/MM3 1.5 TH/MM3 Monocytes # (Auto) 0.9 TH/MM3 0.6 TH/MM3 Eosinophils # (Auto) 0.2 TH/MM3 0.3 TH/MM3 Basophils # (Auto) 0.2 TH/MM3 0.1 TH/MM3 CBC Comment AUTO DIFF DIFF FINAL Differential Comment AUTO DIFF CONFIRMED Laboratory Tests Test 09/08/17 05:50 09/09/17 08:00 C-Reactive Protein 8.90 MG/DL Blood Urea Nitrogen 16 MG/DL Creatinine 1.30 MG/DL Random Glucose 92 MG/DL Total Protein 6.9 GM/DL Albumin 2.5 GM/DL Calcium Level 8.7 MG/DL Alkaline Phosphatase 88 U/L Aspartate Amino Transf (AST/SGOT) 12 U/L Alanine Aminotransferase (ALT/SGPT) 17 U/L Total Bilirubin 0.4 MG/DL Sodium Level 137 MEQ/L Potassium Level 3.9 MEQ/L Chloride Level 103 MEQ/L Carbon Dioxide Level 26.5 MEQ/L Anion Gap 8 MEQ/L Estimat Glomerular Filtration Rate 62 ML/MIN Microbiology Date/Time Source Procedure Growth Status 09/06/17 16:55 Blood Peripheral Aerobic Blood Culture - Preliminary NO GROWTH IN 3 DAYS Resulted 09/06/17 16:55 Blood Peripheral Anaerobic Blood Culture - Preliminary NO GROWTH IN 3 DAYS Resulted 09/06/17 16:50 Blood Peripheral Aerobic Blood Culture - Preliminary NO GROWTH IN 3 DAYS Resulted 09/06/17 16:50 Blood Peripheral Anaerobic Blood Culture - Preliminary NO GROWTH IN 3 DAYS Resulted 09/08/17 04:34 Nasal Aspirate Influenza Types A,B Antigen (KALIE) - Final NEGATIVE FOR FLU A AND B ANTIGEN.... Complete Imaging Last Impressions Chest X-Ray 09/06/17 1641 Signed Impressions: Service Date/Time: Wednesday, September 06, 2017 16:53 - CONCLUSION: 1. Minimal linear opacity at the left lung base, presumably atelectasis. Nathan Cedeño MD Physical Exam GENERAL: awake and alert, not in respiratory distress. Face is flushed SKIN: Warm and moist. He has confluent erythematous rash with plaques in his whole back, including neck, anterior trunk which looks worse, whokle chest area , abdomen, groin and thigh. Has more areas of round red plaques in both UE and LE. Some of pustular areas have coalesced and drying up, some desquamating. HEAD: Atraumatic. Normocephalic. No temporal wasting, or tenderness. EYES: [place] conjunctiva. No petechia or hemorrhage. Pupils equal, round and reactive to light. Extraocular movements full and intact. No scleral icterus. No injection or drainage. EARS, NOSE AND THROAT: Nose without bleeding or purulent nasal discharge. No sinus tenderness. Mucous membranes pink and moist. No oral lesions noted. No exudate. No oral thrush. NECK: Trachea midline. Supple and not tender, no meningeal signs CARDIOVASCULAR: Regular rate and rhythm. No murmurs, rubs or gallops heard RESPIRATORY: Clear to auscultation. Breath sounds equal bilaterally. No rales , wheezing or rhonchi ABDOMEN: Soft, non-tender, nondistended. Bowel sounds present and normoactive. No guarding. No rebound. No organomegaly. EXTREMITIES: No clubbing, cyanosis, or edema.No joint effusion, has good ROM. No calf tenderness. Well perfused and warm. NEUROLOGICAL: Awake and alert. Cranial nerves grossly intact. Motor grossly within normal limits. PSYCHIATRIC: Normal affect, calm and cooperative. LINE: No evidence of infection Assessment & Plan Remarks IMPRESSION Severe psoriasis with ?secondary bacterial infection of rash in groin/thighs and armpits/upper arms (pustular), or the pustular rash is part of his severe/ extensive psoriasis - rash looks worse and generalized ?Sepsis syndrome due to cellulitis, better Obesity Leukocytosis, worse, likely due to steroids that he received RECOMMENDATION Get the biopsy report from his trace evidence technician Continue IV Ancef for now Follow C/S Follow temps and CBC Monitor progress If no further fevers, could D/C with short course of Keflex 500 QID x 7 days Deborah Snell MD Sep 09, 2017 14:04
[2017-09-09 16:00] VITALS: BP 119/65; PULSE 103; RESP 12; TEMP 100.2; O2SAT 95
[2017-09-09] MEDS: MONTELUKAST SODIUM 10 MG TAB PO SCH (20:31)
[2017-09-09 21:37] VITALS: BP 125/79; PULSE 99; RESP 16; TEMP 99.8; O2SAT 96
[2017-09-09] MEDS: ACETAMINOPHEN 500 MG CPLT PO PRN (23:44)
[2017-09-10] VITALS (7 sets, daily range): BP systolic 105–130; BP diastolic 56–66; PULSE 88–105; RESP 18–20; TEMP 97.9–102.1; O2SAT 96–100
[2017-09-10] MEDS: ceFAZolin 2 GM PREMIX 50 ML IV SCH ×2 (06:03→13:37)
[2017-09-10] MEDS: ACETAMINOPHEN/HYDROcodone 325 MG/5 MG TAB PO PRN ×2 (06:05→13:36)
[2017-09-10 08:44] LABS: AUTOMATED NEUTROPHIL # 18.2 TH/MM3 (1.8-7.7); BASOPHIL % 0.1 % (0.0-2.0); EOSINOPHIL # 0.3 TH/MM3 (0-0.4); EOSINOPHIL % 1.3 % (0.0-4.0); HEMATOCRIT 39.6 % (39.0-51.0); HEMOGLOBIN 12.7 GM/DL (13.0-17.0); LYMPH % 6.5 % (9.0-44.0); LYMPHOCYTE # 1.3 TH/MM3 (1.0-4.8); MEAN CELL VOLUME 78.5 FL (80.0-100.0); MEAN CORPUSCULAR HEMOGLOBIN 25.2 PG (27.0-34.0); MEAN CORPUSCULAR HGB CONC 32.1 % (32.0-36.0); MONO % 2.6 % (0.0-8.0); MONOCYTE # 0.5 TH/MM3 (0-0.9); NEUT % 89.5 % (16.0-70.0); PLATELET COUNT 334 TH/MM3 (150-450); RED BLOOD COUNT 5.04 MIL/MM3 (4.50-5.90); RED CELL DISTRIBUTION WIDTH 14.2 % (11.6-17.2); WHITE BLOOD COUNT 20.3 TH/MM3 (4.0-11.0)
[2017-09-10] MEDS: LOSARTAN 50 MG TAB PO SCH ×2 (09:00→20:26)
[2017-09-10] MEDS: FAMOTIDINE 20 MG TAB PO SCH ×2 (09:28→20:26)
[2017-09-10] MEDS: FLUCONAZOLE 200 MG TAB PO SCH (09:28)
[2017-09-10] MEDS: FOLIC ACID 1 MG TAB PO SCH (09:28)
[2017-09-10] MEDS: LORATADINE 10 MG TAB PO SCH (09:29)
[2017-09-10] MEDS: PANTOPRAZOLE SOD 40 MG DELAYED RELEASE TAB PO SCH (09:34)
[2017-09-10] MEDS: ENOXAPARIN SODIUM 40 MG/0.4 ML SYRINGE SQ SCH (09:34)
[2017-09-10] MEDS: PETROLATUM 49%/ZINC OXIDE 15% 4 OUNCE TUBE TOPICAL SCH (09:35)
--- NOTE | 2017-09-10 11:48 | HHI.PR ---
Subjective Remarks Patient admitted with cellulitis rash with dx pustular psoriasis started on methotrexate 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 Objective Vitals GENERAL: SKIN: Warm and dry.erythematous plaques on chest groin back and some scaling some pustula but many areas drying up HEAD: Atraumatic. Normocephalic. EYES: Pupils equal and round. No scleral icterus. No injection or drainage. ENT: No nasal bleeding or discharge. Mucous membranes pink and moist. NECK: Trachea midline. No JVD. CARDIOVASCULAR: Regular rate and rhythm. RESPIRATORY: No accessory muscle use. Clear to auscultation. Breath sounds equal bilaterally. GASTROINTESTINAL: Abdomen soft, non-tender, nondistended. Hepatic and splenic margins not palpable. MUSCULOSKELETAL: Extremities without clubbing, cyanosis, or edema. No obvious deformities. NEUROLOGICAL: Awake and alert. No obvious cranial nerve deficits. Motor grossly within normal limits. Five out of 5 muscle strength in the arms and legs. Normal speech. PSYCHIATRIC: Appropriate mood and affect; insight and judgment normal. Vital Signs Date Time Temp Pulse Resp B/P (MAP) Pulse Ox O2 Delivery O2 Flow Rate FiO2 09/10/17 08:00 97.9 99 18 105/57 (73) 97 09/10/17 07:05 18 09/10/17 05:09 98.6 09/10/17 01:30 99.1 09/10/17 00:19 102.1 105 18 130/63 (85) 96 09/09/17 21:37 99.8 99 16 125/79 (94) 96 09/09/17 16:00 100.2 103 12 119/65 (83) 95 09/09/17 12:00 98.4 101 16 130/76 (94) 96 Result Diagram: 09/10/17 0758 09/09/17 0800 Imaging Last 72 hours Impressions Chest X-Ray 09/06/17 1641 Signed Impressions: Service Date/Time: Wednesday, September 06, 2017 16:53 - CONCLUSION: 1. Minimal linear opacity at the left lung base, presumably atelectasis. Nathan Cedeño MD A/P Problem List: (1) Cellulitis ICD Codes: L03.90 - Cellulitis, unspecified Status: Acute Plan: Possibly source of his fever and leukocytosis. We'll continue Diflucan and abx. Appreciate ID input. 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 He doesn't appear toxic, but rash worsened a bit after steroids. Now improving (2) Pustular psoriasis ICD Codes: L40.1 - Generalized pustular psoriasis Status: Acute Plan: I discussed with his outpatient weight yardage checker, Dr. Fernando yesterday. Based on my description he agrees she likely has a pustular psoriasis. Methotrexate was initiated and he seemed to have tolerated it well. Did have isolated fever overnight which could be a drug fever. We'll continue to follow closely. Pt does not appear toxic. Current flare may be a/w recent med changes. as rash imporving Dr. Fernando will follow up as out patient (3) Leukocytosis ICD Codes: D72.829 - Elevated white blood cell count, unspecified Status: Acute Plan: As above. A CBC elevation of bit worse this morning. Abx adjusted per ID. WBC elevation may be a/w steroid administration and the underlying generalized pustular psoriasis. will like to watch one more day (4) Tinea corporis ICD Codes: B35.4 - Tinea corporis Status: Acute Plan: Diflucan. Ketoconazole. Barrier creams. (5) Hypertension ICD Codes: I10 - Essential (primary) hypertension Status: Chronic Plan: Well-controlled. Continue medication. (6) GERD (gastroesophageal reflux disease) ICD Codes: K21.9 - Gastro-esophageal reflux disease without esophagitis Status: Chronic Plan: Continue medication. Discharge Planning Improving discharge home tomorrow if no more fever, labs stabilize and rash continues to dry. Patient is understanding and quite cooperative regarding his hospital stay and need for continued monitoring. Problem Qualifiers (1) Cellulitis: Qualified Codes: L03.90 - Cellulitis, unspecified (2) Leukocytosis: Qualified Codes: D72.829 - Elevated white blood cell count, unspecified (3) Hypertension: Qualified Codes: I10 - Essential (primary) hypertension Jac Magana MD Sep 10, 2017 11:48
[2017-09-10] MEDS: KETOCONAZOLE 2% CREAM 15 GM TOPICAL SCH (13:03)
--- NOTE | 2017-09-10 16:24 | HHI.IDPN ---
Subjective Subjective Remarks Patient is a 36-year-old male, diagnosed to have psoriasis about a year and a half ago, when he presented with rash on his hip area and axillary area. He went to a threat analyst in the biliary, and he had a skin biopsy which reportedly confirmed the diagnosis of psoriasis. He was given some topical treatment which would control the rash. Patient also has had problem with acne , and he also has a prescription for doxycycline 100 twice a day which he takes for a short time when he has breakout. More recently about 2-4 weeks ago, he started getting more rash. Started spreading and he noted it on his lower trunk , and it was getting somewhat painful. He had different insurance, so he went [place] threat analyst [place] 2 [place]. Another skin biopsy was done, and the patient was told that there is probably some underlying fungal infection, and he was given ketoconazole, and his doxycycline was changed to minocycline. On , he started noticing spreading of the rash in his upper chest area. On the day of admission he started feeling feverish, and he went to the emergency room on September 06. He did not have any fever at that time, and he was given clindamycin. Patient however started getting worse, and he did not start his antibiotic. He came back to the hospital, and has noted that the rash had worsened in his upper trunk area. His white count was elevated. His temperature had gone up to 100.6. He denies any sore throat. He has a chronic cough related to his reflux. He has not had any nausea or vomiting, diarrhea or any urinary complaints. The rash especially in the groin area and in the axillary area are quite painful. Patient is currently on vancomycin and Zosyn. Infectious disease consultation has been requested to evaluate the patient with cellulitis and fevers. Notes reviewed Had one fever spike at midnight Feels better Rash feels better Had MTX started WBC is higher Cultures negative Antibiotics Current Medications Ancef Diflucan Medications (Trade) Dose Ordered Sig/Dave Route Start Time Stop Time Status Last Admin (Diflucan) 200 mg DAILY PO 09/07/17 09:00 09/10/17 09:28 (Tylenol) 500 mg Q6H PRN PO 09/06/17 19:45 09/09/17 23:44 (Cozaar) 50 mg BID PO 09/06/17 21:00 09/09/17 20:31 (Singulair) 10 mg HS PO 09/06/17 21:00 09/09/17 20:31 (Protonix) 40 mg DAILY PO 09/07/17 09:00 09/10/17 09:34 (Claritin) 10 mg DAILY PO 09/07/17 09:00 09/10/17 09:29 (Sensi-Care Protective Barrier Oint) 1 applic DAILY TOPICAL 09/07/17 09:00 09/10/17 09:35 (Nizoral 2% Cream) 1 applic DAILY TOPICAL 09/07/17 09:00 09/10/17 13:03 ([place] 5-325 Mg) 1 tab Q6H PRN PO 09/07/17 07:00 09/10/17 13:36 Cefazolin Sodium/ Dextrose 50 ml @ 100 mls/hr Q8H IV 09/07/17 14:00 09/10/17 13:37 (Pepcid) 20 mg BID PO 09/08/17 09:00 09/10/17 09:28 (Cate-Colace) 1 tab DAILY PRN PO 09/08/17 07:45 (Xanax) 0.25 mg Q8H PRN PO 09/08/17 07:45 09/08/17 21:26 (Lovenox Inj) 40 mg Q24H SQ 09/08/17 09:00 09/10/17 09:34 (Rheumatrex) 7.5 mg Q7D PO 09/08/17 15:00 09/08/17 15:25 (Folate) 1 mg DAILY PO 09/09/17 09:00 09/10/17 09:28 Lines PIV Past Medical History Hypertension Obesity Psoriasis GERD Environmental allergies Allergies: Coded Allergies: codeine (Verified Allergy, Intermediate, Rash, 09/07/17) Breaks out in rash Objective . Vital Signs Date Time Temp Pulse Resp B/P (MAP) Pulse Ox O2 Delivery O2 Flow Rate FiO2 09/10/17 14:36 18 09/10/17 12:00 98.6 89 18 113/65 (81) 97 09/10/17 08:00 97.9 99 18 105/57 (73) 97 09/10/17 05:09 98.6 09/10/17 01:30 99.1 09/10/17 00:19 102.1 105 18 130/63 (85) 96 09/09/17 21:37 99.8 99 16 125/79 (94) 96 09/10/17 09/10/17 09/11/17 15:00 23:00 07:00 Intake Total 50 ml Balance 50 ml IV Total 50 ml . Laboratory Tests Test 09/09/17 08:00 09/10/17 07:58 White Blood Count 17.7 TH/MM3 20.3 TH/MM3 Red Blood Count 4.88 MIL/MM3 5.04 MIL/MM3 Hemoglobin 12.3 GM/DL 12.7 GM/DL Hematocrit 38.2 % 39.6 % Mean Corpuscular Volume 78.2 FL 78.5 FL Mean Corpuscular Hemoglobin 25.2 PG 25.2 PG Mean Corpuscular Hemoglobin Concent 32.2 % 32.1 % Red Cell Distribution Width 14.3 % 14.2 % Platelet Count 265 TH/MM3 334 TH/MM3 Mean Platelet Volume 7.8 FL 8.0 FL Neutrophils (%) (Auto) 86.2 % 89.5 % Lymphocytes (%) (Auto) 8.2 % 6.5 % Monocytes (%) (Auto) 3.6 % 2.6 % Eosinophils (%) (Auto) 1.6 % 1.3 % Basophils (%) (Auto) 0.4 % 0.1 % Neutrophils # (Auto) 15.2 TH/MM3 18.2 TH/MM3 Lymphocytes # (Auto) 1.5 TH/MM3 1.3 TH/MM3 Monocytes # (Auto) 0.6 TH/MM3 0.5 TH/MM3 Eosinophils # (Auto) 0.3 TH/MM3 0.3 TH/MM3 Basophils # (Auto) 0.1 TH/MM3 0.0 TH/MM3 CBC Comment DIFF FINAL DIFF FINAL Differential Comment Laboratory Tests Test 09/09/17 08:00 09/10/17 07:58 Blood Urea Nitrogen 16 MG/DL Creatinine 1.30 MG/DL Random Glucose 92 MG/DL Total Protein 6.9 GM/DL Albumin 2.5 GM/DL Calcium Level 8.7 MG/DL Alkaline Phosphatase 88 U/L Aspartate Amino Transf (AST/SGOT) 12 U/L Alanine Aminotransferase (ALT/SGPT) 17 U/L Total Bilirubin 0.4 MG/DL Sodium Level 137 MEQ/L Potassium Level 3.9 MEQ/L Chloride Level 103 MEQ/L Carbon Dioxide Level 26.5 MEQ/L Anion Gap 8 MEQ/L Estimat Glomerular Filtration Rate 62 ML/MIN C-Reactive Protein 23.30 MG/DL Microbiology Date/Time Source Procedure Growth Status 09/08/17 04:34 Nasal Aspirate Influenza Types A,B Antigen (KALIE) - Final NEGATIVE FOR FLU A AND B ANTIGEN.... Complete Imaging Last Impressions Chest X-Ray 09/06/17 1641 Signed Impressions: Service Date/Time: Wednesday, September 06, 2017 16:53 - CONCLUSION: 1. Minimal linear opacity at the left lung base, presumably atelectasis. Nathan Cedñeo MD Physical Exam GENERAL: awake and alert, not in respiratory distress. SKIN: Warm and moist. Rash are drying up and desquamating HEAD: Atraumatic. Normocephalic. No temporal wasting, or tenderness. EYES: [place] conjunctiva. No petechia or hemorrhage. Pupils equal, round and reactive to light. Extraocular movements full and intact. No scleral icterus. EARS, NOSE AND THROAT: Nose without bleeding or purulent nasal discharge. No sinus tenderness. Mucous membranes pink and moist. No oral lesions noted. NECK: Trachea midline. Supple and not tender, no meningeal signs CARDIOVASCULAR: Regular rate and rhythm. No murmurs, rubs or gallops heard RESPIRATORY: Clear to auscultation. Breath sounds equal bilaterally. No rales , wheezing or rhonchi ABDOMEN: Soft, non-tender, nondistended. Bowel sounds present and normoactive. No guarding. No rebound. No organomegaly. EXTREMITIES: No clubbing, cyanosis, or edema.No joint effusion, has good ROM. No calf tenderness. Well perfused and warm. NEUROLOGICAL: Awake and alert. Cranial nerves grossly intact. Motor grossly within normal limits. PSYCHIATRIC: Normal affect, calm and cooperative. LINE: No evidence of infection Assessment & Plan Remarks IMPRESSION Severe psoriasis with ?secondary bacterial infection of rash in groin/thighs and armpits/upper arms (pustular), or the pustular rash is part of his severe/ extensive psoriasis - rash looks worse and generalized ?Sepsis syndrome due to cellulitis, better Obesity Leukocytosis, worse, likely due to steroids that he received Intermittent fevers RECOMMENDATION Stop IV Ancef Keflex x 4 more days Follow temps Agree with plans Deborah Snell MD Sep 10, 2017 16:23
[2017-09-10] MEDS: CEPHALEXIN MONOHYDRATE 500 MG CAP PO SCH (17:42)
[2017-09-10] MEDS: MONTELUKAST SODIUM 10 MG TAB PO SCH (20:26)
[2017-09-11] MEDS: CEPHALEXIN MONOHYDRATE 500 MG CAP PO SCH ×3 (00:23→12:20)
[2017-09-11] MEDS: ACETAMINOPHEN/HYDROcodone 325 MG/5 MG TAB PO PRN ×2 (00:24→09:30)
[2017-09-11] MEDS: ALPRAZolam 0.25 MG TAB PO PRN (00:24)
[2017-09-11 00:44] VITALS: BP 142/75; PULSE 116; RESP 18; TEMP 99.9; O2SAT 96
[2017-09-11 04:31] VITALS: TEMP 98.7
[2017-09-11 08:00] VITALS: BP 143/73; PULSE 86; RESP 14; TEMP 98.2; O2SAT 99
[2017-09-11] MEDS: LOSARTAN 50 MG TAB PO SCH (09:22)
[2017-09-11] MEDS: LORATADINE 10 MG TAB PO SCH (09:22)
[2017-09-11] MEDS: PANTOPRAZOLE SOD 40 MG DELAYED RELEASE TAB PO SCH (09:22)
[2017-09-11] MEDS: FOLIC ACID 1 MG TAB PO SCH (09:22)
[2017-09-11] MEDS: FAMOTIDINE 20 MG TAB PO SCH (09:22)
[2017-09-11] MEDS: FLUCONAZOLE 200 MG TAB PO SCH (09:22)
[2017-09-11] MEDS: ENOXAPARIN SODIUM 40 MG/0.4 ML SYRINGE SQ SCH (09:22)
[2017-09-11] MEDS: PETROLATUM 49%/ZINC OXIDE 15% 4 OUNCE TUBE TOPICAL SCH (09:23)
[2017-09-11 09:29] LABS: AUTOMATED NEUTROPHIL # 11.9 TH/MM3 (1.8-7.7); BASOPHIL % 0.3 % (0.0-2.0); EOSINOPHIL # 0.3 TH/MM3 (0-0.4); EOSINOPHIL % 1.8 % (0.0-4.0); HEMATOCRIT 40.3 % (39.0-51.0); HEMOGLOBIN 12.9 GM/DL (13.0-17.0); LYMPH % 11.5 % (9.0-44.0); LYMPHOCYTE # 1.6 TH/MM3 (1.0-4.8); MEAN CELL VOLUME 78.3 FL (80.0-100.0); MEAN PLATELET VOLUME 7.9 FL (7.0-11.0); MONO % 2.5 % (0.0-8.0); MONOCYTE # 0.4 TH/MM3 (0-0.9); NEUT % 83.9 % (16.0-70.0); PLATELET COUNT 290 TH/MM3 (150-450); RED BLOOD COUNT 5.16 MIL/MM3 (4.50-5.90); RED CELL DISTRIBUTION WIDTH 14.1 % (11.6-17.2); WHITE BLOOD COUNT 14.2 TH/MM3 (4.0-11.0)
[2017-09-11] MEDS: KETOCONAZOLE 2% CREAM 15 GM TOPICAL SCH (09:30)
[2017-09-11] MEDS ORDERED: FOLI1TAB6 PO (11:10)
[2017-09-11] MEDS ORDERED: DIFL200T PO (11:10)
[2017-09-11] MEDS ORDERED: METH2.5T PO (11:10)
[2017-09-11] MEDS ORDERED: CEPH500C PO (11:10)
[2017-09-11] MEDS ORDERED: HYDR-3516 PO (11:10)
--- NOTE | 2017-09-11 11:20 | HHI.DS ---
Discharge Summary Admission Date Sep 06, 2017 at 18:27 Discharge Date: Sep 11, 2017 Admitting Diagnosis cellulitis (1) Cellulitis Diagnosis: Principal ICD Codes: L03.90 - Cellulitis, unspecified Status: Acute (2) Pustular psoriasis Diagnosis: Principal ICD Codes: L40.1 - Generalized pustular psoriasis Status: Acute (3) Leukocytosis Diagnosis: Principal ICD Codes: D72.829 - Elevated white blood cell count, unspecified Status: Acute (4) Tinea corporis Diagnosis: Secondary ICD Codes: B35.4 - Tinea corporis Status: Acute (5) Hypertension Diagnosis: Secondary ICD Codes: I10 - Essential (primary) hypertension Status: Chronic (6) GERD (gastroesophageal reflux disease) Diagnosis: Secondary ICD Codes: K21.9 - Gastro-esophageal reflux disease without esophagitis Status: Chronic Consultants infectious disease Brief History 36-year-old male with a history of psoriasis presents to the emergency Department second time today with concerns of an uncontrolled rash in his chest , axilla, waistline, and groin. Patient states that he was here this morning and was prescribed clindamycin but has not started this medication yet. Patient states that his fever spiked to 102 and has not taken Tylenol or Motrin for this. He denies nausea, vomiting or diarrhea. Denies shortness of breath or chest pain. Denies abdominal pain. States he has a history of psoriasis and hypertension but otherwise is healthy. Rash is not pruritic. He denies any boils or blisters or fluid collection in the rash. He states that much of the rash has been present for over a year and that he was diagnosed with psoriasis approximately one year ago. However rash in his axilla in his groin area become more erythematous and painful over the last 2 days. Said he had some malaise yesterday and noted low-grade fever this morning with a temperature max of 102 and later today. He is not currently using steroids and has not been for months. They're concerned because the area of redness has spread since this morning's discharge. The only significant medical change of late is that his doxycycline was switched to minocycline approximately 2 weeks ago by a new manager concrete. He said biopsy of the rash in the past which confirmed psoriasis. Reportedly had another biopsy approximately 2 weeks ago by his manager concrete in [place] but does not know the results of that yet. CBC/BMP: 09/11/17 0841 09/09/17 0800 Significant Findings Laboratory Tests Test 09/09/17 08:00 09/10/17 07:58 09/11/17 08:41 White Blood Count 17.7 TH/MM3 (4.0-11.0) 20.3 TH/MM3 (4.0-11.0) 14.2 TH/MM3 (4.0-11.0) Hemoglobin 12.3 GM/DL (13.0-17.0) 12.7 GM/DL (13.0-17.0) 12.9 GM/DL (13.0-17.0) Hematocrit 38.2 % (39.0-51.0) Mean Corpuscular Volume 78.2 FL (80.0-100.0) 78.5 FL (80.0-100.0) 78.3 FL (80.0-100.0) Mean Corpuscular Hemoglobin 25.2 PG (27.0-34.0) 25.2 PG (27.0-34.0) 25.0 PG (27.0-34.0) Neutrophils (%) (Auto) 86.2 % (16.0-70.0) 89.5 % (16.0-70.0) 83.9 % (16.0-70.0) Lymphocytes (%) (Auto) 8.2 % (9.0-44.0) 6.5 % (9.0-44.0) Neutrophils # (Auto) 15.2 TH/MM3 (1.8-7.7) 18.2 TH/MM3 (1.8-7.7) 11.9 TH/MM3 (1.8-7.7) Albumin 2.5 GM/DL (3.4-5.0) Aspartate Amino Transf (AST/SGOT) 12 U/L (15-37) Estimat Glomerular Filtration Rate 62 ML/MIN (>89) C-Reactive Protein 23.30 MG/DL (0.00-0.30) PE at Discharge GENERAL: SKIN: much improved cellulitis and pustular psoriasis,crusting diffusely chest groin with decrease in redness HEAD: Atraumatic. Normocephalic. EYES: Pupils equal and round. No scleral icterus. No injection or drainage. ENT: No nasal bleeding or discharge. Mucous membranes pink and moist. NECK: Trachea midline. No JVD. CARDIOVASCULAR: Regular rate and rhythm. RESPIRATORY: No accessory muscle use. Clear to auscultation. Breath sounds equal bilaterally. GASTROINTESTINAL: Abdomen soft, non-tender, nondistended. Hepatic and splenic margins not palpable. MUSCULOSKELETAL: Extremities without clubbing, cyanosis, or edema. No obvious deformities. NEUROLOGICAL: Awake and alert. No obvious cranial nerve deficits. Motor grossly within normal limits. Five out of 5 muscle strength in the arms and legs. Normal speech. PSYCHIATRIC: Appropriate mood and affect; insight and judgment normal. Hospital Course Patient admitted with severe rash as stated in above note was given steroids which made rash worse,and on research and discussion with patient manager concrete started on methotrexate for pustular psoriasis which much improvement both in pustula and redness and multiple areas of crusting,patient had elevated WBC count with no evidence infection cultures all negative believed drug related contributing and on discharge wbc count down to 14 ,patient had negative mekhi but did have positive CRP at 20 range this will be rechecked as out patient along with repeat cbc and g6pd with close follow up with dermatology .All results of labs will be faxed . ID wants patient to continue diflucan and keflex and continue ketoconizole cream . Patient told to come back any temp > 101. Pt Condition on Discharge: Good Discharge Disposition: Discharge Home Discharge Instructions DIET: Follow Instructions for: Heart Healthy Diet Activities you can perform: Regular-No Restrictions Other Activity Instructions: use creams for rash New Medications: Cephalexin (Cephalexin) 500 Mg Cap 500 MG PO Q6HR for cellulitis MDD 2000 for 7 Days, #28 CAP Fluconazole (Diflucan) 200 Mg Tab 200 MG PO DAILY for Rash MDD 200 for 10 Days, #20 TAB Folic Acid (Folic Acid) 1 Mg Tablet 1 MG PO DAILY for nurishment for 30 Days, #30 TAB 0 Refills Hydrocodone/Acetaminophen (Hydrocodone-Acetamin 5-325 mg) 5 Mg-325 Mg Tablet 1 TAB PO Q6H PRN for pain level 3-10 for 10 Days, #40 TAB 0 Refills Methotrexate (Methotrexate) 2.5 Mg Tab 7.5 MG PO Q7D for pustular psoriais, #2 TAB Continued Medications: Ketoconazole Topical (Ketoconazole Topical) 2% Cream 1 APPLIC TOPICAL BID for Fungal Infection, #15 GM 0 Refills Loratadine Odt (Loratadine Odt) 10 Mg Tab 10 MG PO DAILY for Allergy Management, TAB 0 Refills Losartan (Losartan) 50 Mg Tab 50 MG PO BID for Blood Pressure Management, #60 TAB 0 Refills Montelukast (Singulair) 10 Mg Tab 10 MG PO HS, #30 TAB 0 Refills Pantoprazole (Pantoprazole) 40 Mg Tab 40 MG PO DAILY for Reflux, #30 TAB 0 Refills Ranitidine (Ranitidine 75) 75 Mg Tab 75 MG PO DAILY for Heartburn, TAB 0 Refills Take 30 to 60 minutes before eating food or drinking beverages that cause heartburn. Discontinued Medications: Clindamycin (Cleocin) 300 Mg Cap 300 MG PO Q6H for Infection for 10 Days, #40 CAP 0 Refills Minocycline (Minocycline) 100 Mg Cap 100 MG PO BID for Mgmt Bacterial Infection, CAP 0 Refills Nystatin Topical (Nystatin Topical) 100,000 unit/gm Cream 1 APPLIC TOPICAL BID for Infection, #15 GM 0 Refills Additional Information as above follow up labs tuesday or tuesday at [facility] i will leave labs in my name and when obtained will forward to patient manager concrete . Jac Magana MD Sep 11, 2017 11:19
== END 2017-09-11 14:37 | disposition home or self-care (01) | DRG 872 ==
LOC: PHED 15:41 → PHEDA 18:27 → PH3A 20:07
PROVIDERS: ADMIT Family Medicine; ATTEND Family Medicine
DX: A41.9 Sepsis, unspecified organism (principal); Z68.41 Body mass index [BMI] 40.0-44.9, adult; I10 Essential (primary) hypertension; L03.313 Cellulitis of chest wall; L03.314 Cellulitis of groin; L40.1 Generalized pustular psoriasis; L08.89 Other specified local infections of the skin and subcutaneous tissue; B96.89 Other specified bacterial agents as the cause of diseases classified elsewhere; B35.4 Tinea corporis; E66.9 Obesity, unspecified; K21.9 Gastro-esophageal reflux disease without esophagitis; L60.1 Onycholysis
CPT/HCPCS: 71010; 80053; 81001; 83605; 85025; 85610; 85730; 86038; 86140; 86592; 87040; 87804; 94150; 96361; 96374; J0690; J1450; J1650; J2543; J2920; J3370; J3480; J7030; J7040; J8610